=== PATIENT | female | born 1990 | race American Indian/Alaskan Native ===

== ENCOUNTER 2017-06-10 20:44 | Emergency (ER) | payer OTHER ==
[2017-06-10 20:44] VITALS: BMI 37.0
[2017-06-10 20:56] VITALS: RESP 20
--- NOTE | 2017-06-10 21:41 | C.PDOC ---
History Of Present Illness 26 y/o female presents to ED with complaints of abdominal pain with associated nausea, vomiting and diarrhea. Patient states she is not tolerating PO and reports having previous work up including a CT and an Endoscopy with diagnosis of Gastritis. Patient denies fever, chills or any other complaints at this time. Time Seen by Provider: 06/10/17 21:41 Chief Complaint (Nursing): Abdominal Pain History Per: Patient History/Exam Limitations: no limitations Onset/Duration Of Symptoms: Days Past Medical History Reviewed: Historical Data, Nursing Documentation, Vital Signs Vital Signs: Last Vital Signs Temp 97 F L 06/11/17 00:53 Pulse 68 06/11/17 00:53 Resp 20 06/11/17 00:53 BP 109/60 06/11/17 00:53 Pulse Ox 98 06/11/17 00:53 - Medical History PMH: Asthma, Gastritis - [facility] Procedures INJECT/INFUSE NEC (04/27/14) NEBULIZER THERAPY (05/07/15) Family History: States: No Known Family Hx - Social History Hx Tobacco Use: No Hx Alcohol Use: Yes (Occasionally) Hx Substance Use: No (denies today) - Immunization History Hx Tetanus Toxoid Vaccination: Yes Hx Influenza Vaccination: Yes Hx Pneumococcal Vaccination: Yes Review Of Systems Constitutional: Negative for: Fever, Chills Gastrointestinal: Positive for: Nausea, Vomiting, Abdominal Pain, Diarrhea Skin: Negative for: Rash Physical Exam - Physical Exam Appears: Non-toxic, No Acute Distress Skin: Warm Head: Normacephalic Oral Mucosa: Moist Chest: Symmetrical Cardiovascular: No Murmur Respiratory: No Rales, No Rhonchi, No Wheezing Gastrointestinal/Abdominal: Tenderness (Mild abdominal ), No Guarding, No Rebound Neurological/Psych: Oriented x3 ED Course And Treatment - Laboratory Results Result Diagrams: 06/10/17 22:06 06/10/17 22:06 O2 Sat by Pulse Oximetry: 100 (RA) Pulse Ox Interpretation: Normal Reevaluation Time: 01:38 Reassessment Condition: Improved Medical Decision Making Medical Decision Making: Upon provider reevaluation patient is feeling better, is medically stable, and requires no further treatment in the ED at this time. Patient will be discharged home with Rx for macrobid, ativan, kcl. Counseling was provided and all questions were answered regarding diagnosis and need for follow up with dr le. There is agreement to discharge plan. Return if symptoms persist or worsen. Disposition Counseled Patient/Family Regarding: Studies Performed, Diagnosis, Need For Followup, Rx Given - Disposition Referrals: Abhilash Le MD [Staff Provider] - Disposition Time: 21:41 Condition: FAIR Prescriptions: Lorazepam [Ativan] 0.5 mg PO BID PRN #10 tab PRN Reason: Nausea/Vomiting Nitrofurantoin Macrocrystals [Macrobid] 1 cap PO BID #14 cap Potassium Chloride 20 meq PO DAILY #4 tablet.er Instructions: Acute Nausea and Vomiting (ED), Hypokalemia (DC), Urinary Tract Infection in Women (DC) - Clinical Impression Clinical Impression: Abdominal pain, Nausea, Vomiting, Hypokalemia - Scribe Statement The provider has reviewed the documentation as recorded by the Jeffery Turner All medical record entries made by the Jeffery were at my direction and personally dictated by me. I have reviewed the chart and agree that the record accurately reflects my personal performance of the history, physical exam, medical decision making, and the department course for this patient. I have also personally directed, reviewed, and agree with the discharge instructions and disposition.
[2017-06-10] MEDS ORDERED: Sodium Chloride 0.9% 1,000 ML IV ONE ×2 (21:59→23:35)
[2017-06-10] MEDS ORDERED: Sodium Chloride 0.9% 1,000 ML ONE (22:06)
[2017-06-10 22:13] LABS: BASO % 0.4 % (0.0-2.0); EOS % 0.4 % (0.0-4.0); HEMATOCRIT 40.9 % (34.0-47.0); LYMPH # 2.6 K/uL (1.0-4.3); LYMPH % 36.8 % (20.0-40.0); MEAN CELL VOLUME 88.4 fL (81.0-99.0); MEAN CORPUSCULAR HEMOGLOBIN 29.1 pg (27.0-31.0); MEAN CORPUSCULAR HGB CONC 32.9 g/dL (33.0-37.0); MEAN PLATELET VOLUME 10.8 fL (7.2-11.7); MONO # 0.7 K/uL (0.0-0.8); MONO % 9.6 % (0.0-10.0); NRBC % 0.1 % (0.0-2.0); RED CELL DISTRIBUTION WIDTH 13.6 % (11.5-14.5); WHITE BLOOD COUNT 7.1 K/uL (4.8-10.8)
[2017-06-10 22:19] LABS: CHLORIDE 97 mmol/L (98-107); SODIUM 134 mmol/L (132-148)
[2017-06-10 22:21] LABS: ALB/GLOB RATIO 1.4 (1.0-2.1); ALKALINE PHOSPHATASE 46 U/L (38-126); AST/SGOT 14 U/L (14-36); BILIRUBIN,TOTAL 1.1 mg/dL (0.2-1.3); CARBON DIOXIDE 23 mmol/L (22-30); GFR AFRICAN-AMERICAN > 60; POTASSIUM 2.5 mmol/L (3.6-5.2); TOTAL PROTEIN 6.9 g/dL (6.3-8.3)
[2017-06-10 22:22] LABS: ALT/SGPT 27 U/L (9-52); BLOOD UREA NITROGEN 7 mg/dL (7-17); CALCIUM 7.8 mg/dl (8.6-10.4); GLUCOSE,RANDOM 81 mg/dL (65-105)
[2017-06-10] MEDS ORDERED: Potassium Chloride 10 mEq ER Tab PO STA (22:22)
[2017-06-10] MEDS ORDERED: Potassium Chloride 20 mEq ER Tab PO ONE (22:25)
[2017-06-11] MEDS ORDERED: Sodium Chloride 0.9% 1,000 ML ONE (00:33)
[2017-06-11 00:37] LABS: RBC URINE 16 /hpf (0-3); URINE BILIRUBIN NEGATIVE (NEGATIVE); URINE BLOOD NEGATIVE (NEGATIVE); URINE COLOR Amber (YELLOW); URINE GLUCOSE (UA) NORMAL (Normal); URINE KETONE 2+ mg/dL (NEGATIVE); URINE LEUKOCYTE ESTERASE NEG Leu/uL (Negative); URINE PROTEIN 2+ mg/dL (NEGATIVE); WBC CLUMPS MANY /hpf; WBC URINE 25 /hpf (0-5)
[2017-06-11] MEDS ORDERED: Piperacillin/Tazobact 3.375 gm 100 ML IVPB STA (00:45)
[2017-06-11] MEDS ORDERED: Piperacillin/Tazobact 3.375 gm 100 ML IVPB ONE (00:49)
[2017-06-11 02:05] VITALS: BP 120/70; PULSE 83; TEMP 98.8; O2SAT 98
== END 2017-06-11 02:05 | disposition home or self-care (01) ==
LOC: C.ER 20:44
DX: R10.9 Unspecified abdominal pain (principal); R11.2 Nausea with vomiting, unspecified; E87.6 Hypokalemia
CPT/HCPCS: 80053; 81001; 83690; 84703; 85025; 96361; 96365; 96366; 96367; 96375; 99285; J2060; J2405; J2543; J2765; J3480; J7040

== ENCOUNTER 2017-06-14 18:39 | Inpatient (IN) | payer OTHER ==
[2017-06-14 18:39] VITALS: BMI 31.2
[2017-06-14] MEDS ORDERED: Sodium Chloride 0.9% 1,000 ML IV ONE ×3 (20:13→23:11)
[2017-06-14] MEDS ORDERED: Alum-Mag Hydrox-Simethicone Susp (30 mL) PO STA (20:14)
[2017-06-14] MEDS ORDERED: Sodium Chloride 0.9% 1,000 ML ONE (20:25)
[2017-06-14 20:30] LABS: BASO % 0.8 % (0.0-2.0); EOS % 0.3 % (0.0-4.0); HEMOGLOBIN 13.2 g/dL (11.0-16.0); LYMPH # 1.7 K/uL (1.0-4.3); LYMPH % 30.1 % (20.0-40.0); MEAN CELL VOLUME 89.1 fL (81.0-99.0); MEAN CORPUSCULAR HEMOGLOBIN 29.6 pg (27.0-31.0); MEAN CORPUSCULAR HGB CONC 33.2 g/dL (33.0-37.0); MONO # 0.6 K/uL (0.0-0.8); MONO % 11.6 % (0.0-10.0); NEUT # 3.1 K/uL (1.8-7.0); NEUT % 57.2 % (50.0-75.0); RBC 4.47 Mil/uL (3.80-5.20); RED CELL DISTRIBUTION WIDTH 13.3 % (11.5-14.5); WHITE BLOOD COUNT 5.5 K/uL (4.8-10.8)
[2017-06-14] MEDS ORDERED: Alum-Mag Hydrox-Simethicone Susp (30 mL) ONE (20:35)
[2017-06-14 20:39] LABS: HCG,QUALITATIVE URINE NEGATIVE (NEGATIVE)
[2017-06-14 20:41] LABS: SQUAMOUS EPITHIAL 59 /hpf (0-5); URINE BACTERIA FEW (<OCC); URINE BILIRUBIN NEGATIVE (NEGATIVE); URINE BLOOD NEGATIVE (NEGATIVE); URINE CLARITY Hazy (Clear); URINE COLOR Yellow (YELLOW); URINE GLUCOSE (UA) NORMAL (Normal); URINE LEUKOCYTE ESTERASE 1+ Leu/uL (Negative); URINE NITRATE NEGATIVE (NEGATIVE); URINE PROTEIN NEGATIVE (NEGATIVE)
[2017-06-14 20:42] LABS: GFR AFRICAN-AMERICAN > 60; GFR NON-AFRICAN AMERICAN > 60
[2017-06-14 20:43] LABS: ALB/GLOB RATIO 1.3 (1.0-2.1); ALT/SGPT 21 U/L (9-52); AST/SGOT 22 U/L (14-36); BLOOD UREA NITROGEN 4 mg/dL (7-17); CALCIUM 8.8 mg/dl (8.6-10.4); LIPASE 63 U/L (23-300)
[2017-06-14 20:47] LABS: BARBITURATES, UR NEGATIVE (NEGATIVE); BENZODIAZEPINES, UR NEGATIVE (NEGATIVE)
[2017-06-14 20:49] LABS: PHENCYCLIDINE, UR NEGATIVE (NEGATIVE)
[2017-06-14 20:52] LABS: OPIATES, UR NEGATIVE (NEGATIVE)
--- NOTE | 2017-06-14 20:59 | C.PDOC ---
History Of Present Illness 26 year old female who presents to the ER with a complaint of uncontrollable vomiting for the past 2 weeks. Patient describes the emesis to be a yellow like fluids, she notes she has not been able to tolerate any kind of PO and chest pain due to vomiting. Patient was first seen on March 31 for abdominal pain and vomiting; she had an x-ray done that was negative; she was then seen in April for the same complaint and had a CT abd/pel and abdominal US which were negative. Patient was admitted 04/30-05/03 at [facility] for gastroenteritis; however, she left AMA. Patient was seen in May at [facility] for the same complaints, treated with ativan, macrobid, potassium, and discharged home; most recently patient was seen yesterday in [place] for the same complaints, treated with potassium, zofran, and discharged home. Patient had a recent endoscopy and US that were negative for abnormalities. Patient reports she has had no real bowel movement in the last 2 weeks, but states the when she does it is small amounts of diarrhea. Patient is on PO potassium and zofran at home that gives minimal relief; Denies recent travel or sick contact. Time Seen by Provider: 06/14/17 19:46 Chief Complaint (Nursing): GI Problem History Per: Patient History/Exam Limitations: no limitations Onset/Duration Of Symptoms: Days Current Symptoms Are (Timing): Still Present Quality Of Discomfort: Unable To Describe Associated Symptoms: Vomiting, Diarrhea, Chest Pain Exacerbating Factors: None Alleviating Factors: None Recent travel outside of the [place]: No Abnormal Vaginal Bleeding: No Past Medical History Reviewed: Historical Data, Nursing Documentation, Vital Signs Vital Signs: Last Vital Signs Temp 98.6 F 06/15/17 00:01 Pulse 70 06/15/17 00:01 Resp 22 06/15/17 00:01 BP 103/63 06/15/17 00:01 Pulse Ox 99 06/15/17 00:01 - Medical History PMH: Asthma, Gastritis Surgical History: No Surg Hx - [facility] Procedures INJECT/INFUSE NEC (04/27/14) NEBULIZER THERAPY (05/07/15) Family History: States: Unknown Family Hx - Social History Hx Tobacco Use: No Hx Alcohol Use: No (Occasionally) Hx Substance Use: No (denies today) - Immunization History Hx Tetanus Toxoid Vaccination: No Hx Influenza Vaccination: No Hx Pneumococcal Vaccination: No Review Of Systems ENT: Negative for: Throat Pain Cardiovascular: Positive for: Chest Pain Respiratory: Negative for: Shortness of Breath Gastrointestinal: Positive for: Vomiting, Diarrhea Physical Exam - Physical Exam Appears: Non-toxic Skin: Normal Color, Warm, Dry Head: Atraumatic, Normacephalic Oral Mucosa: Moist Chest: Symmetrical, No Deformity Cardiovascular: Rhythm Regular, No Murmur Respiratory: Normal Breath Sounds, No Rales, No Rhonchi, No Wheezing Gastrointestinal/Abdominal: Soft, Tenderness (LLQ LUQ) Neurological/Psych: Oriented x3, Normal Speech, Normal Cognition ED Course And Treatment - Laboratory Results Result Diagrams: 06/14/17 20:25 06/14/17 20:25 Lab Interpretation: Abnormal (mild hypokalemia. +THC) O2 Sat by Pulse Oximetry: 100 (Room air) Pulse Ox Interpretation: Normal - Radiology CXR: Interpreted by Me CXR Interpretation: Yes: No Acute Disease - Other Rad abd x 2 X-Ray: Interpreted by Me (PO contrast (prior study yesterday) and scant stool noted ) Progress Note: Abdominal x-ray ordered. Maalox, toradol, ativan, zofran, protonix, and IV fluids administered. Reevaluation Time: 23:00 Reassessment Condition: Improved - Physician Consult Information Outcome Of Conversation: 2300: d/w Dr. Blanco- Medicine Dealership Manager- ok to med/surg Obs Medical Decision Making Medical Decision Making: intractable vomiting for about 1 month [facility] evaluations [facility], [facility] in [place] and our hospital Gastritis noted on upper endoscopy but no gastric ulcers. Consider Central etilogy of pt's persistent n/v. Disposition Doctor Will See Patient In The: Hospital Counseled Patient/Family Regarding: Studies Performed, Diagnosis - Disposition Disposition: HOSPITALIZED Disposition Time: 00:00 Condition: GOOD - Clinical Impression Clinical Impression: Intractable vomiting - Scribe Statement The provider has reviewed the documentation as recorded by the Benedictibdorene Kay All medical record entries made by the Scribe were at my direction and personally dictated by me. I have reviewed the chart and agree that the record accurately reflects my personal performance of the history, physical exam, medical decision making, and the department course for this patient. I have also personally directed, reviewed, and agree with the discharge instructions and disposition.
[2017-06-14] MEDS ORDERED: Aluminum Hydroxide/Magnesium Hydroxide Susp (30 mL) PO ONE (22:01)
[2017-06-14] MEDS ORDERED: Aluminum Hydroxide/Magnesium Hydroxide Susp (30 mL) ONE (22:06)
[2017-06-15] MEDS ORDERED: Sodium Chloride 0.9% 1,000 ML IV SCH (08:15)
--- NOTE | 2017-06-15 09:32 | CT ---
PROCEDURE: CT HEAD WITHOUT CONTRAST. HISTORY: Intractable vomiting COMPARISON: None available. TECHNIQUE: Axial computed tomography images were obtained through the head/brain without intravenous contrast. Radiation dose: Total exam DLP = 937 mGy-cm. This CT exam was performed using one or more of the following dose reduction techniques: Automated exposure control, adjustment of the mA and/or kV according to patient size, and/or use of iterative reconstruction technique. FINDINGS: HEMORRHAGE: No intracranial hemorrhage. BRAIN: No mass effect or edema. No atrophy or chronic microvascular ischemic changes. Punctate left basal ganglia calcification. VENTRICLES: Unremarkable. No hydrocephalus. CALVARIUM: Unremarkable. PARANASAL SINUSES: Unremarkable as visualized. No significant inflammatory changes. MASTOID AIR CELLS: Unremarkable as visualized. No inflammatory changes. OTHER FINDINGS: None. IMPRESSION: No acute intracranial abnormality. If focal neurologic deficit persists, consider MRI.
--- NOTE | 2017-06-15 09:55 | RAD ---
Abdomen four views History: Abdominal pain. Comparison: None available. Findings: Mild venous congestion. Contrast within the colon likely from recent administration. Clinical correlation. No evidence of gross bowel obstruction. Relative paucity of bowel gas. Left-sided nipple right noted. Impression: Nonspecific bowel gas pattern with relative paucity of bowel gas.
[2017-06-15 11:43] LABS: BASO # 0.1 K/uL (0.0-0.2); HEMOGLOBIN 11.8 g/dL (11.0-16.0); LYMPH # 1.7 K/uL (1.0-4.3); LYMPH % 33.6 % (20.0-40.0); MEAN CELL VOLUME 89.7 fL (81.0-99.0); MEAN CORPUSCULAR HEMOGLOBIN 29.4 pg (27.0-31.0); MEAN CORPUSCULAR HGB CONC 32.8 g/dL (33.0-37.0); MEAN PLATELET VOLUME 11.1 fL (7.2-11.7); MONO # 0.6 K/uL (0.0-0.8); MONO % 12.5 % (0.0-10.0); NEUT # 2.5 K/uL (1.8-7.0); NEUT % 51.9 % (50.0-75.0); NRBC % 0.1 % (0.0-2.0); RBC 4.01 Mil/uL (3.80-5.20); RED CELL DISTRIBUTION WIDTH 13.7 % (11.5-14.5); WHITE BLOOD COUNT 4.9 K/uL (4.8-10.8)
[2017-06-15] MEDS ORDERED: Pantoprazole 40 mg EC Tab PO STA (11:58)
[2017-06-15 12:01] LABS: ALBUMIN 3.1 g/dL (3.5-5.0)
[2017-06-15 12:04] LABS: AST/SGOT 16 U/L (14-36); GFR AFRICAN-AMERICAN > 60; GFR NON-AFRICAN AMERICAN > 60
[2017-06-15 12:05] LABS: ALB/GLOB RATIO 1.2 (1.0-2.1); ALT/SGPT 24 U/L (9-52); BLOOD UREA NITROGEN 3 mg/dL (7-17)
--- NOTE | 2017-06-15 14:00 | CP.PCM.HP ---
History of Present Illness - History of Present Illness History of Present Illness: COMPREHENSIVE HISTORY & PHYSICAL EXAM HPI ADMITTED FOR CONTINOUS VOMITING FOR 1 DAY PT HAS MULTIPLE ER VISITS FOR SAME PROBLEM . CLAIMS SHE HAD GI W/U WITH DX. GASTRITIS . I DO NOT SEE ANY ENDOSCOPY REPORT PAST HIST. NONE PERSONAL HIST: Smoking. N Alcohol. N Allergy N Travel_- . FAMILY HIST : ROS : Constitutional: Negative for weight change, chills, night sweats, fatigue and usage of assist device. Eyes: Negative for redness, swelling, itching, discharge, vision changes, blurry vision, double vision, glaucoma, cataracts, Ears: Negative for hearing loss, ringing, , tinnitus, vertigo Nose: Negative for rhinorrhea, stuffiness, sniffing, itching, postnasal drip, discoloration, nasal congestion and epistaxis. Throat: Negative for throat clearing, sore throat, hoarseness, difficulty swallowing and difficulty speaking. Respiratory: Negative for cough, , sputum production, chest tightness, wheezing, pleuritic chest pain ,daytime somnolence, chronic cough, hemoptysis, snoring at night, Cardiovascular: Negative for chest pain, palpitations, orthopnea, PND, Edema of legs, leg cramps, angina, claudication, , irregular heartbeat, Neurology: Negative for irritability, muscle weakness, numbness and tingling, seizures, tremors, migraines, slurred speech, syncope, memory loss, mood changes , recurrent headaches Gastrointestinal: Negative for difficulty swallowing, diarrhea, constipation, black stools, rectal bleeding, Genitourinary: Negative for frequent urination, hematuria, discharge, incontinence, urinary retention, frequent UTI, Psychiatric : Negative for depression, anxiety/panic, suicidal tendencies, Musculoskeletal: Negative for swollen joints, back pain, , neck pain, morning stiffness of joints, . Skin: Negative for rash, ulcers, itching, dry skin and pigmented lesions. P/E: Constitutional: Appears stated age and in no apparent distress. Head: Normocephalic. Ears: External ear canals patent without inflammation. Tympanic membranes intact with normal light reflex and landmark. Eyes: Pupils are central, bilaterally equal, symmetrical and reacts to light with normal movements and no icterus or pallor. Nose: External nares are patent. Mucosa is pink Mouth-Throat: Good general appearance and condition. No post-pharyngeal/oropharyngeal erythema and tonsillar hypertrophy. Good dental hygiene. Neck-Lymphatic: Neck is supple with normal ROM, no thyromegaly, lymph nodes or masses. JVD is normal with no carotid bruit. Lungs: Clear to percussion and auscultation with bilateral normal air entry. Cardiovascular: S1 and S2 are normal with no murmurs, gallops and rub. GI Exam: No hepatomegaly. Abdomen is soft and -tender. No Organomegaly , masses or hernias are evident and bowel sounds are normal and active. Neurology: Higher function and all cranial nerves intact, with no gross motor or sensory deficit. Superficial and deep reflexes are normal with downwards planters. No cerebellar deficit with normal gait. Musculoskeletal: No tender spots with normal curvature of the spine with no swelling or restricted ROM of the small and large joints. Extremities: Homans sign absent. Intact pulses with no pitting edema, calf tenderness or skin color changes. Skin: No rash, eruptions or abnormal skin pigmentation LAB/RADIOLOGY: ASSESMENT : VOMITING , ETIOLOGY TO BE DETERMINED R/O LOCAL AND ANALYSIS OR RESEARCH SAFETY INSPECTOR CAUSES PLAN: CT HEAD TO R/O CENTRAL CAUSES OF VOMITING Present on Admission - Present on Admission Any Indicators Present on Admission: No Past Patient History - Infectious Disease Hx of Infectious Diseases: None - Past Social History Smoking Status: Never Smoked - CARDIAC Hx Cardiac Disorders: No - PULMONARY Hx Respiratory Disorders: Yes Hx Asthma: Yes - NEUROLOGICAL Hx Neurological Disorder: No - HEENT Hx HEENT Problems: No - RENAL Hx Chronic Kidney Disease: No Hx Kidney Stones: No - ENDOCRINE/METABOLIC Hx Endocrine Disorders: No - HEMATOLOGICAL/ONCOLOGICAL Hx Blood Disorders: No - INTEGUMENTARY Hx Dermatological Problems: No - MUSCULOSKELETAL/RHEUMATOLOGICAL Hx Musculoskeletal Disorders: No Hx Falls: No - GASTROINTESTINAL Hx Gastrointestinal Disorders: Yes Hx Gastritis: Yes - GENITOURINARY/GYNECOLOGICAL Hx Genitourinary Disorders: No - PSYCHIATRIC Hx Psychophysiologic Disorder: No Hx Substance Use: No (pt denies any use of substance) - SURGICAL HISTORY Hx Surgeries: No - ANESTHESIA Hx Anesthesia: No Meds Allergies/Adverse Reactions: Allergies Allergy/AdvReac Type Severity Reaction Status Date / Time No Known Allergies Allergy Verified 06/14/17 18:45 Results - Vital Signs Recent Vital Signs: Last Vital Signs Temp 98.2 F 06/15/17 08:14 Pulse 73 06/15/17 08:14 Resp 20 06/15/17 08:14 BP 102/61 06/15/17 08:14 Pulse Ox 99 06/15/17 08:14 - Labs Result Diagrams: 06/15/17 11:28 06/15/17 11:28 Labs: Laboratory Results - last 24 hr 06/15/17 06/15/17 11:28 11:28 WBC 4.9 RBC 4.01 Hgb 11.8 Hct 36.0 MCV 89.7 MCH 29.4 MCHC 32.8 L RDW 13.7 Plt Count 183 MPV 11.1 Neut % (Auto) 51.9 Lymph % (Auto) 33.6 [place] % (Auto) 12.5 H Eos % (Auto) 1.0 Baso % (Auto) 1.0 Neut # 2.5 Lymph # 1.7 [place] # 0.6 Eos # 0.0 Baso # 0.1 Sodium 135 Potassium 3.1 L Chloride 99 Carbon Dioxide 24 Anion Gap 15 BUN 3 L Creatinine 0.7 Est GFR ( Amer) > 60 Est GFR (Non-Af Amer) > 60 Random Glucose 111 H Calcium 8.0 L Total Bilirubin 0.7 AST 16 ALT 24 Alkaline Phosphatase 34 L Total Protein 5.7 L Albumin 3.1 L D Globulin 2.6 Albumin/Globulin Ratio 1.2
--- NOTE | 2017-06-15 14:40 | CP.PCM.CON ---
<Melina Hernandez - Last Filed: 06/15/17 15:30> History of Present Illness - History of Present Illness History of Present Illness: Gastroenterology Fellow/PGY5 Consult Note 26 year old female with history of asthma and recurrent nausea/vomiting presenting with nausea, vomiting, and diarrhea. Patient describes persistent vomiting of all oral intake for the last two weeks leading to a fifteen pound weight loss. She denies inciting events with no known sick contacts, recent antibiotics, or recent travel. Associated diarrhea, chills, and loss of appetite. Symptoms are mildly improved with a hot shower. She notes similar symptoms lasting only few days of recurrent vomiting with over ten ER visits and endorsed diagnosis of gastritis. Admits to marijuana use during the " summer months" that she feels sometimes improves her nausea. Admit sto stopping marijuanu use for the last week. Since admission, one witnessed clear vomitus with attempted clear liquid diet. Admits to resolved nausea with zofran administration. Continues to have voluntary phlegm production with over ten spitiing episodes during history taking. She describes the vomiting episodes as same consistency of any solid or liquid intake within 1-3 minutes. Admits to upper abdominal pain due to recurrent contractions with vomiting. Denies hematemesis, constipation, melena, hematochezia, dysphagia, odynophagia, globus sensation, indigestion, acid reflux, heartburn, or bloating. Notes daily bowel movement outside of the last two weeks with acute intermittent diarrhea. Prior CT A/P IV contrast (04/30/17) showed no acute pathology and Ultrasound (05/12/17) showed no gallstones. Prior ER visits 06/10/17 and 06/13/17 with macrobid prescribed for UTI. Prior EGD with Dr. Ahmet Langley one week ago endorsed to show Gastritis. No prior colonoscopy. Family- Mother-cholecystectomy; sister-appendectomy Social- denies tobacco or alcohol use; admits to daily marijuana use " only during summer months and this is my first year using", no marijuana use for one week prior to admission Surgery-none Review of Systems - Review of Systems Review of Systems: 12-point review of systems negative except for as above Past Patient History - Infectious Disease Hx of Infectious Diseases: None - Past Social History Smoking Status: Never Smoked - CARDIAC Hx Cardiac Disorders: No - PULMONARY Hx Respiratory Disorders: Yes Hx Asthma: Yes - NEUROLOGICAL Hx Neurological Disorder: No - HEENT Hx HEENT Problems: No - RENAL Hx Chronic Kidney Disease: No Hx Kidney Stones: No - ENDOCRINE/METABOLIC Hx Endocrine Disorders: No - HEMATOLOGICAL/ONCOLOGICAL Hx Blood Disorders: No - INTEGUMENTARY Hx Dermatological Problems: No - MUSCULOSKELETAL/RHEUMATOLOGICAL Hx Musculoskeletal Disorders: No Hx Falls: No - GASTROINTESTINAL Hx Gastrointestinal Disorders: Yes Hx Gastritis: Yes - GENITOURINARY/GYNECOLOGICAL Hx Genitourinary Disorders: No - PSYCHIATRIC Hx Psychophysiologic Disorder: No Hx Substance Use: No (pt denies any use of substance) - SURGICAL HISTORY Hx Surgeries: No - ANESTHESIA Hx Anesthesia: No Meds Allergies/Adverse Reactions: Allergies Allergy/AdvReac Type Severity Reaction Status Date / Time No Known Allergies Allergy Verified 06/14/17 18:45 - Medications Medications: Current Medications Sodium Chloride (Sodium Chloride 0.9%) 1,000 mls @ 100 mls/hr IV .Q10H [facility]I Last Admin: 06/15/17 13:10 Dose: 100 mls/hr Ondansetron HCl (Zofran Inj) 4 mg IVP Q4 PRN PRN Reason: Nausea/Vomiting Last Admin: 06/15/17 09:45 Dose: 4 mg Ondansetron HCl (Zofran Odt) 4 mg PO Q8H PRN PRN Reason: Nausea/Vomiting see dose instr Last Admin: 06/15/17 12:46 Dose: 4 mg Pantoprazole Sodium (Protonix Inj) 40 mg IVP DAILY [facility] Pneumococcal Polyvalent Vaccine (Pneumovax 23 Vaccine) 0.5 ml IM .ONCE ONE Stop: 06/17/17 10:01 Physical Exam - Constitutional Appears: Non-toxic, No Acute Distress - Head Exam Head Exam: ATRAUMATIC, NORMOCEPHALIC - Eye Exam Eye Exam: EOMI, PERRL Pupil Exam: PERRL. absent: Miosis, Mydriatic - ENT Exam ENT Exam: Mucous Membranes Moist, Normal Oropharynx - Neck Exam Neck exam: Positive for: Full Rom, Normal Inspection - Respiratory Exam Respiratory Exam: Clear to Auscultation Bilateral. absent: Rales, Rhonchi, Wheezes - Cardiovascular Exam Cardiovascular Exam: RRR, +S1, +S2. absent: Gallop, Rubs - GI/Abdominal Exam GI & Abdominal Exam: Normal Bowel Sounds, Soft, Tenderness. absent: Distended, Firm, Guarding, Organomegaly, Rebound, Rigid Additional comments: B/L UQ mild discomfort to palpation - Extremities Exam Extremities exam: Positive for: full ROM. Negative for: pedal edema - Neurological Exam Neurological exam: Alert - Psychiatric Exam Psychiatric exam: Normal Affect, Normal Mood - Skin Skin Exam: Dry, Intact, Normal Color, Warm Results - Vital Signs Recent Vital Signs: Last Vital Signs Temp 98.2 F 06/15/17 08:14 Pulse 73 06/15/17 08:14 Resp 20 06/15/17 08:14 BP 102/61 06/15/17 08:14 Pulse Ox 99 06/15/17 08:14 - Labs Result Diagrams: 06/15/17 11:28 06/15/17 11:28 Labs: Laboratory Results - last 24 hr 06/15/17 06/15/17 11:28 11:28 WBC 4.9 RBC 4.01 Hgb 11.8 Hct 36.0 MCV 89.7 MCH 29.4 MCHC 32.8 L RDW 13.7 Plt Count 183 MPV 11.1 Neut % (Auto) 51.9 Lymph % (Auto) 33.6 Tompkins % (Auto) 12.5 H Eos % (Auto) 1.0 Baso % (Auto) 1.0 Neut # 2.5 Lymph # 1.7 Tompkins # 0.6 Eos # 0.0 Baso # 0.1 Sodium 135 Potassium 3.1 L Chloride 99 Carbon Dioxide 24 Anion Gap 15 BUN 3 L Creatinine 0.7 Est GFR ( Amer) > 60 Est GFR (Non-Af Amer) > 60 Random Glucose 111 H Calcium 8.0 L Total Bilirubin 0.7 AST 16 ALT 24 Alkaline Phosphatase 34 L Total Protein 5.7 L Albumin 3.1 L D Globulin 2.6 Albumin/Globulin Ratio 1.2 Assessment & Plan - Assessment and Plan (Free Text) Assessment: 26 year old female with history of asthma and recurrent nausea/vomiting presenting with nausea, vomiting, and diarrhea. Prior CT A/P IV contrast 04/30/17 no acute pathology and Ultrasound 05/12/17 showed no gallstones. Active treatment of intractable nausea and vomiting. Obstructive series with no acute findings. Prior EGD with Dr. Ahmet Langley one week ago endorsed to show Gastritis. No prior colonoscopy. Plan: >DDx: cannabis withdrawal syndrome, cyclic vomiting syndrome, rumination syndrome >supportive care: anti-emetics, PPI, IVFs >electrolyte replacement >counselled on marijuana cessation >consider antibiotics for bacteriuria and repeat urine culture >clear liquid diet, advance as tolerated >awaiting records from outpatient EGD with Dr. Langley one week ago >will follow clinical course <Sal Gamez - Last Filed: 06/15/17 16:08> Meds - Medications Medications: Current Medications Famotidine (Pepcid) 20 mg IVP BID [facility]I Sodium Chloride (Sodium Chloride 0.9%) 1,000 mls @ 100 mls/hr IV .Q10H [facility]I Last Admin: 06/15/17 13:10 Dose: 100 mls/hr Ondansetron HCl (Zofran Inj) 4 mg IVP Q4 PRN PRN Reason: Nausea/Vomiting Last Admin: 06/15/17 09:45 Dose: 4 mg Ondansetron HCl (Zofran Odt) 4 mg PO Q8H PRN PRN Reason: Nausea/Vomiting see dose instr Last Admin: 06/15/17 12:46 Dose: 4 mg Pneumococcal Polyvalent Vaccine (Pneumovax 23 Vaccine) 0.5 ml IM .ONCE ONE Stop: 06/17/17 10:01 Results - Vital Signs Recent Vital Signs: Last Vital Signs Temp 98.2 F 06/15/17 08:14 Pulse 73 06/15/17 08:14 Resp 20 06/15/17 08:14 BP 102/61 06/15/17 08:14 Pulse Ox 99 06/15/17 08:14 - Labs Result Diagrams: 06/15/17 11:28 06/15/17 11:28 Labs: Laboratory Results - last 24 hr 06/15/17 06/15/17 11:28 11:28 WBC 4.9 RBC 4.01 Hgb 11.8 Hct 36.0 MCV 89.7 MCH 29.4 MCHC 32.8 L RDW 13.7 Plt Count 183 MPV 11.1 Neut % (Auto) 51.9 Lymph % (Auto) 33.6 Tompkins % (Auto) 12.5 H Eos % (Auto) 1.0 Baso % (Auto) 1.0 Neut # 2.5 Lymph # 1.7 Tompkins # 0.6 Eos # 0.0 Baso # 0.1 Sodium 135 Potassium 3.1 L Chloride 99 Carbon Dioxide 24 Anion Gap 15 BUN 3 L Creatinine 0.7 Est GFR ( Amer) > 60 Est GFR (Non-Af Amer) > 60 Random Glucose 111 H Calcium 8.0 L Total Bilirubin 0.7 AST 16 ALT 24 Alkaline Phosphatase 34 L Total Protein 5.7 L Albumin 3.1 L D Globulin 2.6 Albumin/Globulin Ratio 1.2 Attending/Attestation - Attestation I have personally seen and examined this patient.: Yes I have fully participated in the care of the patient.: Yes I have reviewed all pertinent clinical information: Yes Notes (Text): 06/15/17 15:58 I have seen and examined patient with GI fellow. Agree with above documentation with the following additions. In brief, this is a 26 year old female with history of asthma, migraine headaches who presents to hospital with complaint of worsening nausea and vomiting which started 2 weeks ago. She has had recurrent similar episodes over the past several months leading to multiple hospitalizations for similar complaints. She claims for the past two weeks she has been unable to tolerate PO liquids or solids and has had multiple episodes of non-bloody emesis. She also notes excessive phlegm and oral secretions. She reports LUQ abdominal pain which is worsened by episodes of vomiting. She denies dysphagia, odynophagia, regurgitation of food product, fever/chills, or change in bowel habits. She does report weight loss of nearly 15 pounds since symptoms began. She also admits to ongoing marijuana use which she stopped one week ago. She had an EGD with Dr. Langley 1 week ago which was normal as per patient, biopsy results unknown. Asthma Migraine headaches Recurrent nausea, vomiting - symptoms secondary to cyclic vomiting syndrome ( commonly associated with migraine headaches) vs marijuana side effect vs WARDROBE COORDINATOR pathology Prior CT/US imaging reviewed by me showing no gross GI pathology UTI - Continue with IVF hydration and supportive therapy - Anti-emetic therapy PRN - Liquid diet, advance slowly as tolerated - Repeat urine culture, consider antibiotic therapy for UTI (patient previously only partially treated) - Obtain recent EGD biopsy results - Consider CT head imaging to rule out WARDROBE COORDINATOR cause - Will continue to monitor patient clinical course
--- NOTE | 2017-06-16 09:33 | CP.PCM.PN ---
Addendum entered and electronically signed by Melina Hernandez DO 06/16/17 12:34 : Outpatient EGD 06/10/17 showed medium hiatal hernia, distal esophagus erythema Gastritis, doudenal bulb sub-cm clean-based ulcers -pathology: normal esophageal mucosa, mild chronic Gastritis, negative H. pylori Original Note: <Melina Hernandez - Last Filed: 06/16/17 09:59> Subjective - Date & Time of Evaluation Date of Evaluation: 06/16/17 Time of Evaluation: 09:27 - Subjective Subjective: Gastroenterology Fellow/PGY5 Progress Note Patient notes improved abdominal pain. States vomited after clear liquid intake overnight and this morning. One episode of diarrhea this morning after clear liquid intake. A 12-point review of systems negative except for as above. Objective - Vital Signs/Intake and Output Vital Signs (last 24 hours): Temp Pulse Resp BP Pulse Ox 98.2 F 75 20 100/61 98 06/16/17 07:21 06/16/17 07:21 06/16/17 07:21 06/16/17 07:21 06/16/17 07:21 Intake and Output: 06/16/17 06/16/17 06:59 18:59 Intake Total 800 Balance 800 - Medications Medications: Current Medications Famotidine (Pepcid) 20 mg IVP BID [facility] Potassium Chloride 40 meq/ (Sodium Chloride) 1,020 mls @ 100 mls/hr IV .[id number] DAVI Last Admin: 06/16/17 05:00 Dose: 100 mls/hr Ondansetron HCl (Zofran Inj) 4 mg IVP Q4 PRN PRN Reason: Nausea/Vomiting Last Admin: 06/16/17 08:57 Dose: 4 mg Ondansetron HCl (Zofran Odt) 4 mg PO Q8H PRN PRN Reason: Nausea/Vomiting see dose instr Last Admin: 06/15/17 12:46 Dose: 4 mg Pneumococcal Polyvalent Vaccine (Pneumovax 23 Vaccine) 0.5 ml IM .ONCE ONE Stop: 06/17/17 10:01 - Labs Labs: 06/15/17 11:28 06/15/17 11:28 - Constitutional Appears: Non-toxic, No Acute Distress - Head Exam Head Exam: ATRAUMATIC, NORMOCEPHALIC - Eye Exam Eye Exam: EOMI, PERRL Pupil Exam: PERRL. absent: Miosis, Mydriatic - ENT Exam ENT Exam: Mucous Membranes Moist, Normal Oropharynx - Neck Exam Neck Exam: Full ROM, Normal Inspection - Respiratory Exam Respiratory Exam: Clear to Ausculation Bilateral. absent: Rales, Rhonchi, Wheezes - Cardiovascular Exam Cardiovascular Exam: RRR, +S1, +S2. absent: Gallop, Rubs - GI/Abdominal Exam GI & Abdominal Exam: Soft, Normal Bowel Sounds. absent: Distended, Firm, Guarding, Rigid, Tenderness, Organomegaly, Rebound - Extremities Exam Extremities Exam: Full ROM. absent: Pedal Edema - Neurological Exam Neurological Exam: Alert, Awake - Psychiatric Exam Psychiatric exam: Normal Affect, Normal Mood - Skin Skin Exam: Dry, Intact, Normal Color, Warm Assessment and Plan - Assessment and Plan (Free Text) Assessment: 26 year old female with history of asthma and recurrent nausea/vomiting presenting with nausea, vomiting, and diarrhea. Prior CT A/P IV contrast 04/30/17 no acute pathology and Ultrasound 05/12/17 showed no gallstones. Active treatment of intractable nausea and vomiting likely secondary to cannabis use. Obstructive series with no acute findings. Prior EGD with Dr. Ahmet Langley one week ago endorsed to show Gastritis. No prior colonoscopy. Plan: >supportive care: anti-emetics, PPI, IVFs >counselled on marijuana cessation >clear liquid diet, advance as tolerated to low fat, small frequent meals >awaiting records from outpatient EGD with Dr. Langley one week ago >recommend outpatient follow up with established Ore Grader on discharge >will follow clinical course <Dominguez Arriaga - Last Filed: 06/16/17 15:34> Objective - Vital Signs/Intake and Output Vital Signs (last 24 hours): Temp Pulse Resp BP Pulse Ox 98.2 F 75 20 100/61 98 06/16/17 07:21 06/16/17 07:21 06/16/17 07:21 06/16/17 07:21 06/16/17 07:21 - Medications Medications: Current Medications Famotidine (Pepcid) 20 mg IVP BID [facility] Last Admin: 06/16/17 10:37 Dose: 20 mg Dextrose/Sodium Chloride (Dextrose 5%/0.45% Ns 1000 Ml) 1,000 mls @ 100 mls/hr IV .Q10H [facility]I Metoclopramide HCl (Reglan) 5 mg IVP ACTID [facility] Last Admin: 06/16/17 12:36 Dose: 5 mg Ondansetron HCl (Zofran Inj) 4 mg IVP Q4 PRN PRN Reason: Nausea/Vomiting Last Admin: 06/16/17 14:33 Dose: 4 mg Pneumococcal Polyvalent Vaccine (Pneumovax 23 Vaccine) 0.5 ml IM .ONCE ONE Stop: 06/17/17 10:01 Attending/Attestation - Attestation I have personally seen and examined this patient.: Yes I have fully participated in the care of the patient.: Yes I have reviewed all pertinent clinical information, including history, physical exam and plan: Yes Notes (Text): 06/16/17 15:33 26 year old female with h/o asthma, episodic nausea and vomiting in the setting of unremarkable imaging (CT/EGD) and chronic marijuana use. 1. Cyclic vomiting syndrome Plan: -advised marijuana abstinence -supportive care with IV fluids / zofran -acid suppressive therapy with PPI -low fat / small freq meals, advance as tolerated
--- NOTE | 2017-06-16 13:49 | CP.PCM.PN ---
Subjective - Date & Time of Evaluation Date of Evaluation: 06/16/17 Time of Evaluation: 13:47 - Subjective Subjective: CHIEF COMPLAINTS TODAY : LESS VOMITING CT HEAD NON CONTRAST NEG ROS. HEENT : N. Resp : No cough, wheezing ,pleuritic CP ,or hemoptysis Cardio : No anginal CP, PND, orthopnea, palpitation GI : No abd.pain, or GI bleeding . H[employer] : No headache, vertigo, focal deficit. Musculoskel : No joint swelling , Derm : No rash Psych : Normal affect. Ext : No swelling ,calf pain PE. Pt. is alert awake in no distress. V.S As noted in the chart Head ,ear nose,throat and eyes : Normal. Neck : Supple with normal carotids. Lungs: Clear air entry. Heart : S1 & S2 normal with S4. No murmur. Abd : Soft non tender with normal bowel sounds. Neuro : Moves all ext. with no localized deficit. Ext : No edema with intact pulses.Non tender calves Derm : No rashes or decubitus ulcer. LABS/RADIOLOGY: ASSESSMENT/PLAN : GI EVAL NOTED CORRECT K Objective - Vital Signs/Intake and Output Vital Signs (last 24 hours): Temp Pulse Resp BP Pulse Ox 98.2 F 75 20 100/61 98 06/16/17 07:21 06/16/17 07:21 06/16/17 07:21 06/16/17 07:21 06/16/17 07:21 Intake and Output: 06/16/17 06/16/17 11:59 23:59 Intake Total 800 Balance 800 - Medications Medications: Current Medications Famotidine (Pepcid) 20 mg IVP BID [facility] Last Admin: 06/16/17 10:37 Dose: 20 mg Potassium Chloride 40 meq/ (Sodium Chloride) 1,020 mls @ 100 mls/hr IV .[id number] [facility] Last Admin: 06/16/17 05:00 Dose: 100 mls/hr Metoclopramide HCl (Reglan) 5 mg IVP ACTID [facility] Last Admin: 06/16/17 12:36 Dose: 5 mg Ondansetron HCl (Zofran Inj) 4 mg IVP Q4 PRN PRN Reason: Nausea/Vomiting Last Admin: 06/16/17 08:57 Dose: 4 mg Ondansetron HCl (Zofran Odt) 4 mg PO Q8H PRN PRN Reason: Nausea/Vomiting see dose instr Last Admin: 06/15/17 12:46 Dose: 4 mg Pneumococcal Polyvalent Vaccine (Pneumovax 23 Vaccine) 0.5 ml IM .ONCE ONE Stop: 06/17/17 10:01 - Labs Labs: 06/15/17 11:28 06/15/17 11:28
[2017-06-16 14:46] LABS: BASO % 0.7 % (0.0-2.0); EOS # 0.1 K/uL (0.0-0.7); EOS % 0.8 % (0.0-4.0); HEMOGLOBIN 13.3 g/dL (11.0-16.0); LYMPH # 1.4 K/uL (1.0-4.3); LYMPH % 21.6 % (20.0-40.0); MEAN CELL VOLUME 90.4 fL (81.0-99.0); MEAN CORPUSCULAR HEMOGLOBIN 29.1 pg (27.0-31.0); MEAN CORPUSCULAR HGB CONC 32.2 g/dL (33.0-37.0); MONO # 0.5 K/uL (0.0-0.8); MONO % 8.4 % (0.0-10.0); NEUT # 4.3 K/uL (1.8-7.0); NEUT % 68.5 % (50.0-75.0); NRBC % 0.2 % (0.0-2.0); RBC 4.57 Mil/uL (3.80-5.20); RED CELL DISTRIBUTION WIDTH 13.6 % (11.5-14.5); WHITE BLOOD COUNT 6.3 K/uL (4.8-10.8)
[2017-06-16 15:14] LABS: ALBUMIN 3.6 g/dL (3.5-5.0)
[2017-06-16 15:17] LABS: AST/SGOT 29 U/L (14-36); GFR AFRICAN-AMERICAN > 60; GFR NON-AFRICAN AMERICAN > 60
[2017-06-16 15:18] LABS: ALB/GLOB RATIO 1.2 (1.0-2.1); ALT/SGPT 21 U/L (9-52); CALCIUM 8.7 mg/dl (8.6-10.4)
[2017-06-16 15:20] LABS: BLOOD UREA NITROGEN < 2 mg/dL (7-17)
[2017-06-16] MEDS: Dextrose 5%/0.45% NS 1,000 ML IV SCH (16:29)
[2017-06-17] MEDS: Dextrose 5%/0.45% NS 1,000 ML IV SCH ×2 (02:05→14:30)
[2017-06-17 08:31] LABS: GFR AFRICAN-AMERICAN > 60; GFR NON-AFRICAN AMERICAN > 60
[2017-06-17 08:32] LABS: BLOOD UREA NITROGEN < 2 mg/dL (7-17); CALCIUM 8.6 mg/dl (8.6-10.4)
[2017-06-17] MEDS ORDERED: Pneumococcal 23-Valent Vaccine IM ONE (10:00)
--- NOTE | 2017-06-17 10:06 | CP.PCM.PN ---
<Aneta Markham - Last Filed: 06/17/17 10:15> Subjective - Date & Time of Evaluation Date of Evaluation: 06/17/17 Time of Evaluation: 06:15 - Subjective Subjective: GI Fellow PGY4 Progress Note Pt seen and evaluated at beside, pt reports able to tolerate liquids yesterday with no further emesis. She is still very nauseas, IV Zofran and Reglan helps a little. Pt requesting advancing diet, feels like she will not vomit. Pt denies abdominal pain, fevers or chills. ROS: A 12pt ROS was obtained and was negative except as above. Objective - Vital Signs/Intake and Output Vital Signs (last 24 hours): Temp Pulse Resp BP Pulse Ox 98.7 F 70 20 120/82 98 06/17/17 08:01 06/17/17 08:01 06/17/17 08:01 06/17/17 08:01 06/17/17 08:01 Intake and Output: 06/17/17 06/17/17 06:59 18:59 Intake Total 980 Balance 980 - Medications Medications: Current Medications Famotidine (Pepcid) 20 mg IVP BID [facility] Last Admin: 06/17/17 09:04 Dose: 20 mg Dextrose/Sodium Chloride (Dextrose 5%/0.45% Ns 1000 Ml) 1,000 mls @ 100 mls/hr IV .Q10H [facility] Last Admin: 06/17/17 02:05 Dose: 100 mls/hr Metoclopramide HCl (Reglan) 5 mg IVP ACTID [facility] Last Admin: 06/17/17 08:55 Dose: 5 mg Ondansetron HCl (Zofran Inj) 4 mg IVP Q4 PRN PRN Reason: Nausea/Vomiting Last Admin: 06/17/17 06:16 Dose: 4 mg Pneumococcal Polyvalent Vaccine (Pneumovax 23 Vaccine) 0.5 ml IM .ONCE ONE Stop: 06/17/17 10:01 Last Admin: 06/17/17 09:04 Dose: Not Given - Labs Labs: 06/17/17 08:11 - Constitutional Appears: Well, Non-toxic, No Acute Distress - Head Exam Head Exam: ATRAUMATIC, NORMAL INSPECTION, NORMOCEPHALIC - Eye Exam Eye Exam: EOMI, Normal appearance, PERRL Pupil Exam: PERRL - ENT Exam ENT Exam: Mucous Membranes Moist, Normal Exam - Neck Exam Neck Exam: Full ROM, Normal Inspection - Respiratory Exam Respiratory Exam: Clear to Ausculation Bilateral, NORMAL BREATHING PATTERN - Cardiovascular Exam Cardiovascular Exam: RRR, +S1, +S2 - GI/Abdominal Exam GI & Abdominal Exam: Soft, Normal Bowel Sounds. absent: Tenderness, Organomegaly - Rectal Exam Rectal Exam: Deferred - Extremities Exam Extremities Exam: Full ROM, Normal Inspection - Back Exam Back Exam: NORMAL INSPECTION - Neurological Exam Neurological Exam: Alert, Awake, Oriented x3 - Psychiatric Exam Psychiatric exam: Normal Affect, Normal Mood - Skin Skin Exam: Dry, Intact, Normal Color, Warm Assessment and Plan - Assessment and Plan (Free Text) Assessment: This is a 26yF with history of asthma and recurrent nausea/vomiting presenting with nausea, vomiting, and diarrhea. 1. Cyclic Vomiting Syndrome 2. Hx Asthma 3. Hx Migraine Headaches 4. Hx Marijuana Use Plan: -EGD on 06/10/17 showed medium hiatal hernia, distal esophagus erythema Gastritis , doudenal bulb sub-cm clean-based ulcers -pathology: normal esophageal mucosa, mild chronic Gastritis, negative H. pylori -Continue supportive care: anti-emetics, PPI, IVFs -Pt counselled on marijuana cessation -Advance diet -Recommend outpatient follow up with established Tool Pusher on discharge <Sal Gamez - Last Filed: 06/17/17 12:52> Objective - Vital Signs/Intake and Output Vital Signs (last 24 hours): Temp Pulse Resp BP Pulse Ox 98.7 F 70 20 120/82 98 06/17/17 08:01 06/17/17 08:01 06/17/17 08:01 06/17/17 08:01 06/17/17 08:01 Intake and Output: 06/17/17 06/17/17 06:59 18:59 Intake Total 980 Balance 980 - Medications Medications: Current Medications Famotidine (Pepcid) 20 mg IVP BID [facility] Last Admin: 06/17/17 09:04 Dose: 20 mg Dextrose/Sodium Chloride (Dextrose 5%/0.45% Ns 1000 Ml) 1,000 mls @ 100 mls/hr IV .Q10H [facility] Last Admin: 06/17/17 02:05 Dose: 100 mls/hr Potassium Chloride (Potassium Chloride 20 Meq/100 Ml) 20 meq in 100 mls @ 50 mls/hr IVPB Q2H [facility]I Stop: 06/17/17 14:44 Metoclopramide HCl (Reglan) 5 mg IVP ACTID [facility] Last Admin: 06/17/17 08:55 Dose: 5 mg Ondansetron HCl (Zofran Inj) 4 mg IVP Q4 PRN PRN Reason: Nausea/Vomiting Last Admin: 06/17/17 06:16 Dose: 4 mg - Labs Labs: 06/17/17 08:11 Attending/Attestation - Attestation I have personally seen and examined this patient.: Yes I have fully participated in the care of the patient.: Yes I have reviewed all pertinent clinical information, including history, physical exam and plan: Yes Notes (Text): 06/17/17 12:49 I have seen and examined patient with GI fellow. No acute events overnight, she continues to endorse significant nausea but denies vomiting. Tolerating PO liquids without difficulty. She denies fever/chills, diarrhea. Review of vitals from today are normal. Nausea Vomiting Etiology of symptoms unclear, though could be related to CVS given association with migraine headaches - Will advance diet slowly as tolerated - Continue with supportive care, IVF hydration - Anti-emetic therapy PRN - Recent EGD biopsy results from 1 week ago reviewed showing no significant abnormalities - CT head negative for intracranial pathology - Will continue to monitor patient clinical course
--- NOTE | 2017-06-17 13:58 | CP.PCM.PN ---
Subjective - Date & Time of Evaluation Date of Evaluation: 06/17/17 Time of Evaluation: 13:57 - Subjective Subjective: TOLERATING PO LIQUIDS ADVANCE DIET IF NO VOMITING , DISCHARGE COUNSELLED ON FOOD AND RECREATIONAL USE OF DRUGS Objective - Vital Signs/Intake and Output Vital Signs (last 24 hours): Temp Pulse Resp BP Pulse Ox 98.7 F 70 20 120/82 98 06/17/17 08:01 06/17/17 08:01 06/17/17 08:01 06/17/17 08:01 06/17/17 08:01 Intake and Output: 06/17/17 06/17/17 11:59 23:59 Intake Total 980 Balance 980 - Medications Medications: Current Medications Famotidine (Pepcid) 20 mg IVP BID [facility] Last Admin: 06/17/17 09:04 Dose: 20 mg Dextrose/Sodium Chloride (Dextrose 5%/0.45% Ns 1000 Ml) 1,000 mls @ 100 mls/hr IV .Q10H [facility] Last Admin: 06/17/17 02:05 Dose: 100 mls/hr Potassium Chloride (Potassium Chloride 20 Meq/100 Ml) 20 meq in 100 mls @ 50 mls/hr IVPB Q2H [facility] Stop: 06/17/17 14:44 Metoclopramide HCl (Reglan) 5 mg IVP ACTID [facility] Last Admin: 06/17/17 08:55 Dose: 5 mg Ondansetron HCl (Zofran Inj) 4 mg IVP Q4 PRN PRN Reason: Nausea/Vomiting Last Admin: 06/17/17 06:16 Dose: 4 mg - Labs Labs: 06/17/17 08:11
[2017-06-17] MEDS: Potassium Chl 40 mEq in D5-1/2 1,000 ML IV SCH (18:45)
[2017-06-17] MEDS: Sucralfate 1 gm/10 ml Oral Susp UD PO SCH ×3 (19:37→23:37)
[2017-06-18] MEDS: Potassium Chl 40 mEq in D5-1/2 1,000 ML IV SCH ×4 (04:45→19:36)
[2017-06-18] MEDS ORDERED: Pantoprazole 40 mg EC Tab PO SCH (07:30)
--- NOTE | 2017-06-18 09:15 | CP.PCM.PN ---
<Carlos Call - Last Filed: 06/18/17 09:12> Subjective - Date & Time of Evaluation Date of Evaluation: 06/18/17 Time of Evaluation: 06:20 - Subjective Subjective: PGY5 GI Fellow Progress Note Patient seen and examined bedside this morning. The patient is very anxious, upset and has vomited multiple times this morning, including one large episode while I was at bedside. She admits to abdominal pain and nausea/vomiting with any PO intake. 12 system ROS performed and negative except where stated. Objective - Vital Signs/Intake and Output Vital Signs (last 24 hours): Temp Pulse Resp BP Pulse Ox 98.5 F 77 20 100/62 99 06/18/17 00:00 06/18/17 00:00 06/18/17 00:00 06/18/17 00:00 06/18/17 00:00 Intake and Output: 06/18/17 06/18/17 06:59 18:59 Intake Total 1300 Balance 1300 - Medications Medications: Current Medications Potassium Chloride/Dextrose/Sod Cl (Potassium Chl 40 Meq In D5-1/2ns) 1,000 mls @ 100 mls/hr IV .Q10H [facility] Last Admin: 06/18/17 04:45 Dose: Not Given Ondansetron HCl (Zofran Inj) 4 mg IVP Q4 PRN PRN Reason: Nausea/Vomiting Last Admin: 06/18/17 04:05 Dose: 4 mg Pantoprazole Sodium (Protonix Inj) 40 mg IVP ACB [facility] Last Admin: 06/18/17 08:36 Dose: Not Given Promethazine HCl (Phenergan Inj) 25 mg IM Q6H PRN PRN Reason: Nausea/Vomiting Sucralfate (Carafate Oral Susp) 1 gm PO QID [facility] Last Admin: 06/17/17 23:37 Dose: 1 gm - Labs Labs: 06/17/17 08:11 - Constitutional Appears: In Acute Distress, Other (emotional) - Eye Exam Eye Exam: EOMI, PERRL - ENT Exam ENT Exam: Mucous Membranes Dry - Respiratory Exam Respiratory Exam: Clear to Ausculation Bilateral. absent: Rales, Rhonchi, Wheezes - Cardiovascular Exam Cardiovascular Exam: RRR, +S1, +S2 - GI/Abdominal Exam GI & Abdominal Exam: Soft, Tenderness, Normal Bowel Sounds. absent: Distended, Firm, Guarding, Rigid, Organomegaly - Extremities Exam Extremities Exam: Normal Inspection. absent: Pedal Edema - Neurological Exam Neurological Exam: Alert, Awake, Oriented x3 - Psychiatric Exam Psychiatric exam: Normal Affect, Normal Mood - Skin Skin Exam: Dry, Warm Assessment and Plan - Assessment and Plan (Free Text) Assessment: Patient is a 26yo female with PMHx significant for asthma who presented with multiple bouts of nausea/vomiting -Frequent nausea/vomiting, suspect cyclic vomiting syndrome -Marjuana use -Asthma Plan: -D/C reglan -Erythromycin IV not available; Use Promethazine 25mg IM as ordered Q6HPRN, two doses as an abortive measure for this current vomiting episode -Ativan 0.5mg IVP one dose now -Liquid diet, slow, deliberate intake -IVF as ordered -Protonix 40mg IVP QAMAC -Counselled on marijuana cessation -Continue to monitor response to therapy -Recommend outpatient gastric emptying study once episode resolves <Dominguez Arriaga - Last Filed: 06/18/17 19:25> Objective - Vital Signs/Intake and Output Vital Signs (last 24 hours): Temp Pulse Resp BP Pulse Ox 98.9 F 76 20 101/66 98 06/18/17 17:25 06/18/17 17:25 06/18/17 17:25 06/18/17 17:25 06/18/17 17:25 Intake and Output: 06/18/17 06/19/17 18:59 06:59 Intake Total 800 Balance 800 - Medications Medications: Current Medications Potassium Chloride/Dextrose/Sod Cl (Potassium Chl 40 Meq In D5-1/2ns) 1,000 mls @ 100 mls/hr IV .Q10H [facility] Last Admin: 06/18/17 15:53 Dose: Not Given Ondansetron HCl (Zofran Inj) 4 mg IVP Q4 PRN PRN Reason: Nausea/Vomiting Last Admin: 06/18/17 04:05 Dose: 4 mg Pantoprazole Sodium (Protonix Inj) 40 mg IVP ACB [facility] Last Admin: 06/18/17 08:36 Dose: Not Given Promethazine HCl (Phenergan Inj) 25 mg IM Q6H PRN PRN Reason: Nausea/Vomiting Last Admin: 06/18/17 09:37 Dose: 25 mg Sucralfate (Carafate Oral Susp) 1 gm PO QID [facility] Last Admin: 06/18/17 15:52 Dose: Not Given - Labs Labs: 06/17/17 08:11 Attending/Attestation - Attestation I have personally seen and examined this patient.: Yes I have fully participated in the care of the patient.: Yes I have reviewed all pertinent clinical information, including history, physical exam and plan: Yes Notes (Text): 06/18/17 19:23 26 year old female with h/o asthma admitted with vomiting. 1. Nausea and vomiting Plan: -uncertain etiology -hasn't responded toreglan so far -dc reglan, start promethazine as above for possible cyclic vomiting syndrome -consider Gastric emptying scan outpatient -consider CT enterography outpatient or when tolerating liquids -continue ppi -marijuana cessation -IV fluids and electrolyte replacement
[2017-06-18] MEDS: Sucralfate 1 gm/10 ml Oral Susp UD PO SCH ×4 (09:50→21:36)
--- NOTE | 2017-06-18 13:20 | CP.PCM.PN ---
Subjective - Date & Time of Evaluation Date of Evaluation: 06/18/17 Time of Evaluation: 13:19 - Subjective Subjective: PT CONTINUOS TO HAVE VOMITING WITH SPITTING GI ADJUSTED MEDS D/W PT Objective - Vital Signs/Intake and Output Vital Signs (last 24 hours): Temp Pulse Resp BP Pulse Ox 98.5 F 77 20 100/62 99 06/18/17 00:00 06/18/17 00:00 06/18/17 00:00 06/18/17 00:00 06/18/17 00:00 Intake and Output: 06/18/17 06/18/17 11:59 23:59 Intake Total 800 Balance 800 - Medications Medications: Current Medications Potassium Chloride/Dextrose/Sod Cl (Potassium Chl 40 Meq In D5-1/2ns) 1,000 mls @ 100 mls/hr IV .Q10H [facility] Last Admin: 06/18/17 09:47 Dose: 100 mls/hr Ondansetron HCl (Zofran Inj) 4 mg IVP Q4 PRN PRN Reason: Nausea/Vomiting Last Admin: 06/18/17 04:05 Dose: 4 mg Pantoprazole Sodium (Protonix Inj) 40 mg IVP ACB [facility] Last Admin: 06/18/17 08:36 Dose: Not Given Promethazine HCl (Phenergan Inj) 25 mg IM Q6H PRN PRN Reason: Nausea/Vomiting Last Admin: 06/18/17 09:37 Dose: 25 mg Sucralfate (Carafate Oral Susp) 1 gm PO QID [facility] Last Admin: 06/18/17 09:50 Dose: Not Given - Labs Labs: 06/17/17 08:11
[2017-06-19] MEDS: Potassium Chl 40 mEq in D5-1/2 1,000 ML IV SCH ×4 (00:45→20:40)
[2017-06-19] MEDS: Sucralfate 1 gm/10 ml Oral Susp UD PO SCH (10:39)
--- NOTE | 2017-06-19 12:46 | CP.PCM.PN ---
<AlejandramichaelpuraCarlos - Last Filed: 06/19/17 12:43> Subjective - Date & Time of Evaluation Date of Evaluation: 06/19/17 Time of Evaluation: 11:10 - Subjective Subjective: PGY5 GI Fellow Progress Note Patient seen and examined bedside this morning. The patient admits to improvement in symptoms with Ativan/Promethazine combo yesterday. Still nauseated and uncomfortable with frequent spitting saliva in to basin at bedside. Not tolerating liquids. Abdominal pain improved. 12 system ROS performed and negative except where stated. Objective - Vital Signs/Intake and Output Vital Signs (last 24 hours): Temp Pulse Resp BP Pulse Ox 98.1 F 77 20 100/63 100 06/19/17 00:00 06/19/17 00:00 06/19/17 00:00 06/19/17 00:00 06/19/17 00:00 Intake and Output: 06/19/17 06/19/17 06:59 18:59 Intake Total 850 Balance 850 - Medications Medications: Current Medications Potassium Chloride/Dextrose/Sod Cl (Potassium Chl 40 Meq In D5-1/2ns) 1,000 mls @ 100 mls/hr IV .Q10H [facility] Last Admin: 06/19/17 05:45 Dose: 100 mls/hr Lorazepam (Ativan) 0.5 mg IVP Q8H PRN PRN Reason: Anxiety Ondansetron HCl (Zofran Inj) 4 mg IVP Q4 PRN PRN Reason: Nausea/Vomiting Last Admin: 06/19/17 11:09 Dose: 4 mg Pantoprazole Sodium (Protonix Inj) 40 mg IVP ACB [facility] Last Admin: 06/19/17 08:04 Dose: 40 mg Promethazine HCl (Phenergan Inj) 25 mg IM Q6H PRN PRN Reason: Nausea/Vomiting Last Admin: 06/18/17 09:37 Dose: 25 mg Sucralfate (Carafate Oral Susp) 1 gm PO QID [facility] Last Admin: 06/19/17 10:39 Dose: Not Given - Labs Labs: 06/17/17 08:11 - Constitutional Appears: No Acute Distress - Eye Exam Eye Exam: EOMI, PERRL - ENT Exam ENT Exam: Mucous Membranes Moist - Respiratory Exam Respiratory Exam: Clear to Ausculation Bilateral. absent: Rales, Rhonchi, Wheezes - Cardiovascular Exam Cardiovascular Exam: RRR, +S1, +S2 - GI/Abdominal Exam GI & Abdominal Exam: Soft, Tenderness (epigastric), Normal Bowel Sounds. absent : Distended, Firm, Guarding, Rigid, Organomegaly - Extremities Exam Extremities Exam: Normal Inspection. absent: Pedal Edema - Neurological Exam Neurological Exam: Alert, Awake, Oriented x3 - Psychiatric Exam Psychiatric exam: Anxious - Skin Skin Exam: Dry, Warm Assessment and Plan - Assessment and Plan (Free Text) Assessment: Patient is a 26yo female with PMHx significant for asthma who presented with multiple bouts of nausea/vomiting -Frequent nausea/vomiting, suspect cyclic vomiting syndrome -Marjuana use -Asthma Plan: -Consider D/C zofran as patient has no relief with this medication -Continue Promethazine/Ativan combo -Diet as tolerated -Protonix 40mg IVP QAMAC -D/C carafate -Counselled on marijuana cessation -Continue to monitor response to therapy -Recommend outpatient gastric emptying study once episode resolves <Yvette Story MD - Last Filed: 06/19/17 16:04> Objective - Vital Signs/Intake and Output Vital Signs (last 24 hours): Temp Pulse Resp BP Pulse Ox 98.1 F 77 20 100/63 100 06/19/17 00:00 06/19/17 00:00 06/19/17 00:00 06/19/17 00:00 06/19/17 00:00 Intake and Output: 06/19/17 06/19/17 06:59 18:59 Intake Total 850 1180 Balance 850 1180 - Medications Medications: Current Medications Acetaminophen (Tylenol 325mg Tab) 650 mg PO Q6 PRN PRN Reason: Pain, Mild (1-3) Last Admin: 06/19/17 12:54 Dose: 650 mg Potassium Chloride/Dextrose/Sod Cl (Potassium Chl 40 Meq In D5-1/2ns) 1,000 mls @ 100 mls/hr IV .Q10H [facility] Last Admin: 06/19/17 05:45 Dose: 100 mls/hr Lorazepam (Ativan) 0.5 mg IVP Q8H PRN PRN Reason: Anxiety Ondansetron HCl (Zofran Inj) 4 mg IVP Q4 PRN PRN Reason: Nausea/Vomiting Last Admin: 06/19/17 11:09 Dose: 4 mg Pantoprazole Sodium (Protonix Inj) 40 mg IVP ACB [facility] Last Admin: 06/19/17 08:04 Dose: 40 mg Promethazine HCl (Phenergan Inj) 25 mg IM Q6H PRN PRN Reason: Nausea/Vomiting Last Admin: 06/18/17 09:37 Dose: 25 mg - Labs Labs: 06/17/17 08:11 Attending/Attestation - Attestation I have personally seen and examined this patient.: Yes I have fully participated in the care of the patient.: Yes I have reviewed all pertinent clinical information, including history, physical exam and plan: Yes Notes (Text): 06/19/17 16:02 Patient seen with GI fellow. This is a 26 yo female with PMHx significant for asthma who presented with multiple bouts of nausea/vomiting and daily marijuana use. Continue anti emetics and diet as tolerated. IVF and supportive care. Continue PPI and discontinue carafate if not able to tolerate orals. Needs outpatient GES
--- NOTE | 2017-06-19 13:33 | CP.PCM.PN ---
Subjective - Date & Time of Evaluation Date of Evaluation: 06/19/17 Time of Evaluation: 13:32 - Subjective Subjective: LESS ABD. PAIN SPITTING AND INTERMITTENT VOMITING MEDS READJUSTED Objective - Vital Signs/Intake and Output Vital Signs (last 24 hours): Temp Pulse Resp BP Pulse Ox 98.1 F 77 20 100/63 100 06/19/17 00:00 06/19/17 00:00 06/19/17 00:00 06/19/17 00:00 06/19/17 00:00 - Medications Medications: Current Medications Acetaminophen (Tylenol 325mg Tab) 650 mg PO Q6 PRN PRN Reason: Pain, Mild (1-3) Last Admin: 06/19/17 12:54 Dose: 650 mg Potassium Chloride/Dextrose/Sod Cl (Potassium Chl 40 Meq In D5-1/2ns) 1,000 mls @ 100 mls/hr IV .Q10H [facility] Last Admin: 06/19/17 05:45 Dose: 100 mls/hr Lorazepam (Ativan) 0.5 mg IVP Q8H PRN PRN Reason: Anxiety Ondansetron HCl (Zofran Inj) 4 mg IVP Q4 PRN PRN Reason: Nausea/Vomiting Last Admin: 06/19/17 11:09 Dose: 4 mg Pantoprazole Sodium (Protonix Inj) 40 mg IVP ACB [facility] Last Admin: 06/19/17 08:04 Dose: 40 mg Promethazine HCl (Phenergan Inj) 25 mg IM Q6H PRN PRN Reason: Nausea/Vomiting Last Admin: 06/18/17 09:37 Dose: 25 mg - Labs Labs: 06/17/17 08:11
[2017-06-19 17:33] LABS: BASO % 0.8 % (0.0-2.0); EOS # 0.2 K/uL (0.0-0.7); EOS % 4.1 % (0.0-4.0); HEMOGLOBIN 12.7 g/dL (11.0-16.0); LYMPH # 1.9 K/uL (1.0-4.3); LYMPH % 39.4 % (20.0-40.0); MEAN CELL VOLUME 89.6 fL (81.0-99.0); MEAN CORPUSCULAR HEMOGLOBIN 29.6 pg (27.0-31.0); MEAN PLATELET VOLUME 10.3 fL (7.2-11.7); MONO # 0.5 K/uL (0.0-0.8); MONO % 9.9 % (0.0-10.0); NEUT # 2.2 K/uL (1.8-7.0); NEUT % 45.8 % (50.0-75.0); NRBC % 0.1 % (0.0-2.0); RBC 4.3 Mil/uL (3.80-5.20); RED CELL DISTRIBUTION WIDTH 13.8 % (11.5-14.5); WHITE BLOOD COUNT 4.7 K/uL (4.8-10.8)
[2017-06-19 18:03] LABS: ALBUMIN 3.3 g/dL (3.5-5.0)
[2017-06-19 18:06] LABS: ALB/GLOB RATIO 1.1 (1.0-2.1); AST/SGOT 18 U/L (14-36); GFR AFRICAN-AMERICAN > 60; GFR NON-AFRICAN AMERICAN > 60
[2017-06-19 18:07] LABS: ALT/SGPT 26 U/L (9-52); CALCIUM 8.6 mg/dl (8.6-10.4)
[2017-06-19 18:08] LABS: BLOOD UREA NITROGEN < 2 mg/dL (7-17)
[2017-06-20] MEDS: Potassium Chl 40 mEq in D5-1/2 1,000 ML IV SCH ×4 (06:45→18:04)
--- NOTE | 2017-06-20 11:18 | CP.PCM.PN ---
<AlejandramichaelpuraCarlos - Last Filed: 06/20/17 11:13> Subjective - Date & Time of Evaluation Date of Evaluation: 06/20/17 Time of Evaluation: 09:35 - Subjective Subjective: PGY5 GI Fellow Progress Note Patient seen and examined bedside this morning. The patient states she is feeling better today with less frequent vomiting after Phenergan/Ativan initiated. Still could not tolerate liquid diet per her account. No nursing documentation to support frequent vomiting as described by patient. Continues to spit frequently in to basin at bedside for unclear reason. 12 system ROS performed and negative except where stated. Objective - Vital Signs/Intake and Output Vital Signs (last 24 hours): Temp Pulse Resp BP Pulse Ox 97.1 F L 61 18 128/60 99 06/19/17 23:00 06/19/17 23:00 06/19/17 23:00 06/19/17 23:00 06/19/17 23:00 Intake and Output: 06/20/17 06/20/17 06:59 18:59 Intake Total 1650 Balance 1650 - Medications Medications: Current Medications Acetaminophen (Tylenol 325mg Tab) 650 mg PO Q6 PRN PRN Reason: Pain, Mild (1-3) Last Admin: 06/19/17 12:54 Dose: 650 mg Amitriptyline HCl (Elavil) 10 mg PO HS [facility] Potassium Chloride/Dextrose/Sod Cl (Potassium Chl 40 Meq In D5-1/2ns) 1,000 mls @ 100 mls/hr IV .Q10H [facility] Last Admin: 06/20/17 07:59 Dose: 100 mls/hr Lorazepam (Ativan) 0.5 mg IVP Q8H PRN PRN Reason: Anxiety Last Admin: 06/19/17 23:00 Dose: 0.5 mg Ondansetron HCl (Zofran Inj) 4 mg IVP Q4 PRN PRN Reason: Nausea/Vomiting Last Admin: 06/20/17 05:45 Dose: 4 mg Pantoprazole Sodium (Protonix Inj) 40 mg IVP ACB [facility] Last Admin: 06/20/17 07:50 Dose: 40 mg Promethazine HCl (Phenergan Inj) 25 mg IM Q6H PRN PRN Reason: Nausea/Vomiting Last Admin: 06/20/17 02:41 Dose: 25 mg - Labs Labs: 06/19/17 17:23 06/19/17 17:23 - Constitutional Appears: Non-toxic, No Acute Distress - Eye Exam Eye Exam: EOMI, PERRL - ENT Exam ENT Exam: Mucous Membranes Moist - Respiratory Exam Respiratory Exam: Clear to Ausculation Bilateral. absent: Rales, Rhonchi, Wheezes - Cardiovascular Exam Cardiovascular Exam: RRR, +S1, +S2 - GI/Abdominal Exam GI & Abdominal Exam: Soft, Normal Bowel Sounds. absent: Distended, Firm, Guarding, Rigid, Tenderness, Organomegaly - Extremities Exam Extremities Exam: Normal Inspection. absent: Pedal Edema - Neurological Exam Neurological Exam: Alert, Awake, Oriented x3 - Psychiatric Exam Psychiatric exam: Anxious, Depressed - Skin Skin Exam: Dry, Warm Assessment and Plan - Assessment and Plan (Free Text) Assessment: Patient is a 26yo female with PMHx significant for asthma who presented with multiple bouts of nausea/vomiting -Frequent nausea/vomiting, suspect cyclic vomiting syndrome -Marjuana use -Asthma Plan: -Improved with Phenergan/Ativan combination -Add amitriptyline 35mg (0.5mg/kg) PO QHS -Diet as tolerated -Protonix 40mg IVP QAMAC -Consider psychiatric evaluation -Counselled on marijuana cessation -Recommend outpatient gastric emptying study once episode resolves <Jez ZUNIGA,Yvette - Last Filed: 06/20/17 12:43> Objective - Vital Signs/Intake and Output Vital Signs (last 24 hours): Temp Pulse Resp BP Pulse Ox 97.1 F L 61 18 128/60 99 06/19/17 23:00 06/19/17 23:00 06/19/17 23:00 06/19/17 23:00 06/19/17 23:00 Intake and Output: 06/20/17 06/20/17 06:59 18:59 Intake Total 1650 Balance 1650 - Medications Medications: Current Medications Acetaminophen (Tylenol 325mg Tab) 650 mg PO Q6 PRN PRN Reason: Pain, Mild (1-3) Last Admin: 06/19/17 12:54 Dose: 650 mg Amitriptyline HCl (Elavil) 10 mg PO HS [facility] Amitriptyline HCl (Elavil) 25 mg PO HS [facility] Potassium Chloride/Dextrose/Sod Cl (Potassium Chl 40 Meq In D5-1/2ns) 1,000 mls @ 100 mls/hr IV .Q10H [facility] Last Admin: 06/20/17 07:59 Dose: 100 mls/hr Lorazepam (Ativan) 0.5 mg IVP Q8H PRN PRN Reason: Anxiety Last Admin: 06/19/17 23:00 Dose: 0.5 mg Ondansetron HCl (Zofran Inj) 4 mg IVP Q4 PRN PRN Reason: Nausea/Vomiting Last Admin: 06/20/17 05:45 Dose: 4 mg Pantoprazole Sodium (Protonix Inj) 40 mg IVP ACB [facility] Last Admin: 06/20/17 07:50 Dose: 40 mg Promethazine HCl (Phenergan Inj) 25 mg IM Q6H PRN PRN Reason: Nausea/Vomiting Last Admin: 06/20/17 11:28 Dose: 25 mg - Labs Labs: 06/19/17 17:23 06/19/17 17:23 Attending/Attestation - Attestation I have personally seen and examined this patient.: Yes I have fully participated in the care of the patient.: Yes I have reviewed all pertinent clinical information, including history, physical exam and plan: Yes Notes (Text): 06/20/17 12:42 Patient seen with GI fellow. This is a 26 yo female with PMHx significant for asthma who presented with multiple bouts of nausea/vomiting and daily marijuana use. Vomiting decreased and abdominal pain resolved. Complains of lack of sleep due to noise. Addede dulcolax yesterday that made her move bowel movements but small quantity. Continue anti emetics and diet as tolerated. IVF and supportive care. Continue PPI. Needs outpatient GES. Will add small dose amitryptilline to her regimen today for refractory vomiting
--- NOTE | 2017-06-20 14:18 | CP.PCM.PN ---
Subjective - Date & Time of Evaluation Date of Evaluation: 06/20/17 Time of Evaluation: 14:16 - Subjective Subjective: SPITTING CONTINUOUSLY FOR UNKNOWN REASON PT CLAIMS SHE STILL HAS VOMITING AND NURSING IS NOT DOCUMENTED COUNSELLED TO PT TO INFORM RN IF SHE VOMITS PSYCH EVAL Objective - Vital Signs/Intake and Output Vital Signs (last 24 hours): Temp Pulse Resp BP Pulse Ox 97.1 F L 61 18 128/60 99 06/19/17 23:00 06/19/17 23:00 06/19/17 23:00 06/19/17 23:00 06/19/17 23:00 Intake and Output: 06/20/17 06/20/17 11:59 23:59 Intake Total 800 Balance 800 - Medications Medications: Current Medications Acetaminophen (Tylenol 325mg Tab) 650 mg PO Q6 PRN PRN Reason: Pain, Mild (1-3) Last Admin: 06/19/17 12:54 Dose: 650 mg Amitriptyline HCl (Elavil) 10 mg PO HS [facility] Amitriptyline HCl (Elavil) 25 mg PO HS [facility] Potassium Chloride/Dextrose/Sod Cl (Potassium Chl 40 Meq In D5-1/2ns) 1,000 mls @ 100 mls/hr IV .Q10H [facility] Last Admin: 06/20/17 07:59 Dose: 100 mls/hr Lorazepam (Ativan) 0.5 mg IVP Q8H PRN PRN Reason: Anxiety Last Admin: 06/19/17 23:00 Dose: 0.5 mg Ondansetron HCl (Zofran Inj) 4 mg IVP Q4 PRN PRN Reason: Nausea/Vomiting Last Admin: 06/20/17 05:45 Dose: 4 mg Pantoprazole Sodium (Protonix Inj) 40 mg IVP ACB [facility] Last Admin: 06/20/17 07:50 Dose: 40 mg Promethazine HCl (Phenergan Inj) 25 mg IM Q6H PRN PRN Reason: Nausea/Vomiting Last Admin: 06/20/17 11:28 Dose: 25 mg - Labs Labs: 06/19/17 17:23 06/19/17 17:23
[2017-06-20 20:29] LABS: BASO % 0.4 % (0.0-2.0); EOS # 0.1 K/uL (0.0-0.7); EOS % 2.9 % (0.0-4.0); HEMOGLOBIN 12.1 g/dL (11.0-16.0); LYMPH # 1.3 K/uL (1.0-4.3); LYMPH % 31.7 % (20.0-40.0); MEAN CELL VOLUME 89.1 fL (81.0-99.0); MEAN CORPUSCULAR HEMOGLOBIN 29.4 pg (27.0-31.0); MEAN PLATELET VOLUME 10.5 fL (7.2-11.7); MONO # 0.6 K/uL (0.0-0.8); MONO % 14.3 % (0.0-10.0); NEUT # 2.1 K/uL (1.8-7.0); NEUT % 50.7 % (50.0-75.0); RBC 4.11 Mil/uL (3.80-5.20); RED CELL DISTRIBUTION WIDTH 13.8 % (11.5-14.5); WHITE BLOOD COUNT 4.2 K/uL (4.8-10.8)
[2017-06-20 20:36] LABS: GFR AFRICAN-AMERICAN > 60; GFR NON-AFRICAN AMERICAN > 60
[2017-06-20 20:37] LABS: CALCIUM 8.5 mg/dl (8.6-10.4)
[2017-06-20 20:41] LABS: BLOOD UREA NITROGEN < 2 mg/dL (7-17)
[2017-06-21] MEDS: Potassium Chl 40 mEq in D5-1/2 1,000 ML IV SCH ×3 (04:17→17:43)
--- NOTE | 2017-06-21 06:20 | CP.PCM.PN ---
<Adonay Jules - Last Filed: 06/21/17 10:10> Subjective - Date & Time of Evaluation Date of Evaluation: 06/21/17 Time of Evaluation: 06:15 - Subjective Subjective: PGY4 GI Fellow Progress Note Patient seen and examined bedside this morning. Pt continues to have vomitings, reports x5 episodes yesterday x1 in the Am, bilious without blood unable to tolerate any PO intake Denies and abd pain +BM, but little amount yesterday 12 system ROS performed and negative except where stated. Objective - Vital Signs/Intake and Output Vital Signs (last 24 hours): Temp Pulse Resp BP Pulse Ox 98.1 F 94 H 20 99/66 L 98 06/21/17 00:00 06/21/17 00:00 06/21/17 00:00 06/21/17 00:00 06/21/17 00:00 Intake and Output: 06/20/17 06/21/17 18:59 06:59 Intake Total 2200 1800 Balance 2200 1800 - Medications Medications: Current Medications Acetaminophen (Tylenol 325mg Tab) 650 mg PO Q6 PRN PRN Reason: Pain, Mild (1-3) Last Admin: 06/19/17 12:54 Dose: 650 mg Amitriptyline HCl (Elavil) 10 mg PO HS [facility] Last Admin: 06/20/17 21:26 Dose: 10 mg Amitriptyline HCl (Elavil) 25 mg PO HS [facility] Last Admin: 06/20/17 21:26 Dose: 25 mg Lorazepam (Ativan) 0.5 mg IVP Q8H PRN PRN Reason: Anxiety Last Admin: 06/20/17 16:49 Dose: 0.5 mg Ondansetron HCl (Zofran Inj) 4 mg IVP Q4 PRN PRN Reason: Nausea/Vomiting Last Admin: 06/21/17 05:34 Dose: 4 mg Pantoprazole Sodium (Protonix Inj) 40 mg IVP ACB [facility] Last Admin: 06/20/17 07:50 Dose: 40 mg Promethazine HCl (Phenergan Inj) 25 mg IM Q6H PRN PRN Reason: Nausea/Vomiting Last Admin: 06/21/17 02:53 Dose: 25 mg - Labs Labs: 06/20/17 20:22 06/20/17 20:22 - Constitutional Appears: Well, No Acute Distress - Eye Exam Eye Exam: Normal appearance - ENT Exam ENT Exam: Mucous Membranes Moist, Normal Exam - Respiratory Exam Respiratory Exam: Clear to Ausculation Bilateral, NORMAL BREATHING PATTERN. absent: Rales, Rhonchi, Wheezes, Respiratory Distress - Cardiovascular Exam Cardiovascular Exam: REGULAR RHYTHM, +S1, +S2 - GI/Abdominal Exam GI & Abdominal Exam: Soft, Normal Bowel Sounds - Extremities Exam Extremities Exam: Full ROM, Normal Capillary Refill, Normal Inspection - Neurological Exam Neurological Exam: Alert, Awake, Oriented x3 - Psychiatric Exam Psychiatric exam: Normal Affect, Normal Mood - Skin Skin Exam: Dry, Intact, Normal Color, Warm Assessment and Plan - Assessment and Plan (Free Text) Assessment: Patient is a 26yo female with PMHx significant for asthma who presented with multiple bouts of nausea/vomiting -Frequent nausea/vomiting, suspect cyclic vomiting syndrome -Marjuana use -Asthma Plan: -Continue with Phenergan/Ativan combination, with zofran -will add reglan before meals and bedtime -Continue amitriptyline 35mg (0.5mg/kg) PO QHS, may take a few days for desired effects -Will get gastric emptying scan and CT abd/pelv /w contrast -Diet as tolerated -Protonix 40mg IVP QAMAC -Consider psychiatric evaluation -Counselled on marijuana cessation D/W Dr. Story <Jez ZUNIGA,Yvette - Last Filed: 06/21/17 19:14> Objective - Vital Signs/Intake and Output Vital Signs (last 24 hours): Temp Pulse Resp BP Pulse Ox 98.6 F 84 20 183/85 H 100 06/21/17 16:00 06/21/17 16:00 06/21/17 16:00 06/21/17 16:00 06/21/17 16:00 - Medications Medications: Current Medications Acetaminophen (Tylenol 325mg Tab) 650 mg PO Q6 PRN PRN Reason: Pain, Mild (1-3) Last Admin: 06/19/17 12:54 Dose: 650 mg Amitriptyline HCl (Elavil) 10 mg PO HS [facility] Last Admin: 06/20/17 21:26 Dose: 10 mg Amitriptyline HCl (Elavil) 25 mg PO HS [facility] Last Admin: 06/20/17 21:26 Dose: 25 mg Hydroxyzine HCl (Atarax) 25 mg PO TID [facility] Potassium Chloride/Dextrose/Sod Cl (Potassium Chl 40 Meq In D5-1/2ns) 1,000 mls @ 100 mls/hr IV .Q10H [facility] Last Admin: 06/21/17 16:30 Dose: Not Given Lorazepam (Ativan) 0.5 mg IVP Q8H PRN PRN Reason: Anxiety Last Admin: 06/20/17 16:49 Dose: 0.5 mg Metoclopramide HCl (Reglan) 10 mg IVP [facility] Last Admin: 06/21/17 16:30 Dose: Not Given Ondansetron HCl (Zofran Inj) 4 mg IVP Q4 PRN PRN Reason: Nausea/Vomiting Last Admin: 06/21/17 15:45 Dose: 4 mg Pantoprazole Sodium (Protonix Inj) 40 mg IVP ACB [facility] Last Admin: 06/21/17 08:44 Dose: 40 mg Trazodone HCl (Desyrel) 50 mg PO HS [facility] - Labs Labs: 06/20/17 20:22 06/20/17 20:22 Attending/Attestation - Attestation I have personally seen and examined this patient.: Yes I have fully participated in the care of the patient.: Yes I have reviewed all pertinent clinical information, including history, physical exam and plan: Yes Notes (Text): 06/21/17 19:11 Patient seen with GI fellow. This is a 26 yo female with PMHx significant for asthma who presented with multiple bouts of nausea/vomiting and daily marijuana use. Suspicion for cyclical vomiting syndrome. Anti emetics changed several times over course of last few days but she keeps stating she is still vomiting. I see her mostly spitting saliva in bed bellamy. She was tearful during interview today due to non diagnosis of her current condition. She had EGD few weeks ago that showed gastritis H pylori negative. Will add back reglan today and get abdominal imaging and gatsric emptying. She is still on IVF and unable to keep fluids down. Added dulcolax yesterday that made her move bowel movements but small quantity. Continue anti emetics and diet as tolerated. IVF and supportive care. Continue PPI. Keep small dose amitryptilline to her regimen for refractory vomiting. Psychiatry evaluation noted.
--- NOTE | 2017-06-21 10:54 | PCM.PSYCH ---
Initial Psychiatric Evaluation - Initial Psychiatric Evaluation Type of Admission: Voluntary Legal Status: Capacity Current Medications: Active Medications Generic Name Dose Route Start Last Admin Trade Name Freq PRN Reason Stop Dose Admin Acetaminophen 650 mg 06/19/17 12:43 06/19/17 12:54 Tylenol 325mg Tab PO 650 mg Q6 PRN Administration Pain, Mild (1-3) Amitriptyline HCl 10 mg 06/20/17 22:00 06/20/17 21:26 Elavil PO 10 mg HS DAVI Administration Amitriptyline HCl 25 mg 06/20/17 22:00 06/20/17 21:26 Elavil PO 25 mg HS DAVI Administration Lorazepam 0.5 mg 06/19/17 12:42 06/20/17 16:49 Ativan IVP 0.5 mg Q8H PRN Administration Anxiety Metoclopramide HCl 10 mg 06/21/17 11:30 Reglan IVP ACHS DAVI Ondansetron HCl 4 mg 06/15/17 08:03 06/21/17 05:34 Zofran Inj IVP 4 mg Q4 PRN Administration Nausea/Vomiting Pantoprazole Sodium 40 mg 06/18/17 07:30 06/21/17 08:44 Protonix Inj IVP 40 mg ACB DAVI Administration Promethazine HCl 25 mg 06/18/17 07:53 06/21/17 02:53 Phenergan Inj IM 25 mg Q6H PRN Administration Nausea/Vomiting Past Psychiatric History - Past Psychiatric History Pertinent Medical Hx (Current Medical&Sleep Prob, Allergies): Allergies Allergy/AdvReac Type Severity Reaction Status Date / Time No Known Allergies Allergy Verified 06/14/17 18:45 No Known Home Med 06/14/17
--- NOTE | 2017-06-21 11:23 | PCM.PSYCH ---
Initial Psychiatric Evaluation - Initial Psychiatric Evaluation Type of Admission: Voluntary Legal Status: Capacity History of Present Illness and Precipitating Events: Mrs Amin is a 26 yr old female who presented to [facility] [place] ED for vomiting for 2 weeks prior to admission. Psych has now been consulted to investigate a psychiatric etiology. During my interview I noticed a well groomed , well nourished female who was overweight/mildly obese. She was spitting into the bed bellamy while I asked her questions. Upon questioning she stated she had seen Dr Hammond over the weekend however this is not true. I asked her if she has or has ever had any depressive symptoms and she said no. She admitted to sleep disturbance in the hospital due to noise level. She denied lack of interest, guilt, lack of energy, inability to concentrate, appetite changes, psychomotor issues, or suicidal ideation. She denied manic symptoms. She denied anxiety symptoms such as being restless, muscle tension, excessive worrying or easily fatigability. She denied auditory and visual hallucinations. I went back to her room at a later time to clarify her remark stating she was seen by Dr Hammond over the weekend and she again stated that she was seen by him. Then a few seconds later she stated she wasn't sure. Medications: none Psych hx: Patient denies any past psychiatric history. She denies ever taking any psychiatric medication. Family psych hx: denies Social hx: denies tobacco or alcohol use; admits to daily marijuana use "only during summer months and this is my first year using", no marijuana use for one week prior to admission Current Medications: Active Medications Generic Name Dose Route Start Last Admin Trade Name Freq PRN Reason Stop Dose Admin Acetaminophen 650 mg 06/19/17 12:43 06/19/17 12:54 Tylenol 325mg Tab PO 650 mg Q6 PRN Administration Pain, Mild (1-3) Amitriptyline HCl 10 mg 06/20/17 22:00 06/20/17 21:26 Elavil PO 10 mg HS DAVI Administration Amitriptyline HCl 25 mg 06/20/17 22:00 06/20/17 21:26 Elavil PO 25 mg HS DAVI Administration Lorazepam 0.5 mg 06/19/17 12:42 06/20/17 16:49 Ativan IVP 0.5 mg Q8H PRN Administration Anxiety Metoclopramide HCl 10 mg 06/21/17 11:30 Reglan IVP ACHS DAVI Ondansetron HCl 4 mg 06/15/17 08:03 06/21/17 05:34 Zofran Inj IVP 4 mg Q4 PRN Administration Nausea/Vomiting Pantoprazole Sodium 40 mg 06/18/17 07:30 06/21/17 08:44 Protonix Inj IVP 40 mg ACB DAVI Administration Promethazine HCl 25 mg 06/18/17 07:53 06/21/17 02:53 Phenergan Inj IM 25 mg Q6H PRN Administration Nausea/Vomiting Past Psychiatric History - Past Psychiatric History Previous Treatment History: None Pertinent Medical Hx (Current Medical&Sleep Prob, Allergies): Allergies Allergy/AdvReac Type Severity Reaction Status Date / Time No Known Allergies Allergy Verified 06/14/17 18:45 No Known Home Med 06/14/17 Review of Systems - EENT Eyes: UNREMARKABLE Ears: UNREMARKABLE Nose/Mouth/Throat: UNREMARKABLE - Breasts Breasts: UNREMARKABLE - Cardiovascular Cardiovascular: UNREMARKABLE - Respiratory Respiratory: UNREMARKABLE - Gastrointestinal Gastrointestinal: Vomiting - Genitourinary Genitourinary: UNREMARKABLE - Menstruation Menstruation: UNREMARKABLE - Musculoskeletal Musculoskeletal: UNREMARKABLE - Integumentary Integumentary: UNREMARKABLE - Neurological Neurological: UNREMARKABLE - Psychiatric Psychiatric: absent: Abnormal Sleep Pattern, Anhedonia, Anxiety, Auditory Hallucinations, Change in Appetite, Depression, Difficulty Concentrating, Hallucinations, Homicidal Ideation, Hopelessness, Panic Attacks, Suicidal Ideation, Visual Hallucinations Mental Status Examination - Personal Presentation Personal Presentation: Looks stated age - Affect Affect: Broad - Motor Activity Motor Activity: Calm - Reliability in Providing Information Reliability in Providing Information: Good - Speech Speech: Organized - Mood Mood: Neutral - Formal Thought Process Formal Thought Process: No Impairment - Obsessions/Compulsions Obsessions: None Compulsions: None - Cognitive Functions Orientation: Person, Place, Time Attention/Concentration: Attentive Abstract Thinking: Arabi Judgement: Intact, as evidence by: Good judgement DSM 5 DX - DSM 5 DSM 5 Diagnosis: Mood disorder - Recommended/Plan of Treatment Treatment Recommendations and Plan of Treatment: Trazadone 50mg po daily - Smoking Cessation Smoking Cessation Initiated: No Reason for not providing: non-smoker
[2017-06-21] MEDS ORDERED: Iohexol 240 (50 ml) PO ONE (12:45)
--- NOTE | 2017-06-21 13:47 | CP.PCM.PN ---
Subjective - Date & Time of Evaluation Date of Evaluation: 06/21/17 Time of Evaluation: 13:46 - Subjective Subjective: CONTINUOS TO HAVE VOMITING AND SPITTING GI HAS ORDERED CT SCAN CONT PRESENT MEDS AWAITING PSYCH EVAL Objective - Vital Signs/Intake and Output Vital Signs (last 24 hours): Temp Pulse Resp BP Pulse Ox 98.3 F 86 20 126/100 H 100 06/21/17 07:40 06/21/17 07:40 06/21/17 07:40 06/21/17 07:40 06/21/17 07:40 Intake and Output: 06/21/17 06/21/17 11:59 23:59 Intake Total 900 Balance 900 - Medications Medications: Current Medications Acetaminophen (Tylenol 325mg Tab) 650 mg PO Q6 PRN PRN Reason: Pain, Mild (1-3) Last Admin: 06/19/17 12:54 Dose: 650 mg Amitriptyline HCl (Elavil) 10 mg PO HS DAVI Last Admin: 06/20/17 21:26 Dose: 10 mg Amitriptyline HCl (Elavil) 25 mg PO HS DAVI Last Admin: 06/20/17 21:26 Dose: 25 mg Lorazepam (Ativan) 0.5 mg IVP Q8H PRN PRN Reason: Anxiety Last Admin: 06/20/17 16:49 Dose: 0.5 mg Metoclopramide HCl (Reglan) 10 mg IVP ACHS DAVI Last Admin: 06/21/17 12:35 Dose: 10 mg Ondansetron HCl (Zofran Inj) 4 mg IVP Q4 PRN PRN Reason: Nausea/Vomiting Last Admin: 06/21/17 05:34 Dose: 4 mg Pantoprazole Sodium (Protonix Inj) 40 mg IVP ACB DAVI Last Admin: 06/21/17 08:44 Dose: 40 mg Promethazine HCl (Phenergan Inj) 25 mg IM Q6H PRN PRN Reason: Nausea/Vomiting Last Admin: 06/21/17 02:53 Dose: 25 mg - Labs Labs: 06/20/17 20:22 06/20/17 20:22
--- NOTE | 2017-06-22 08:45 | CP.PCM.PN ---
Addendum entered and electronically signed by Adonay Jules DO 06/22/17 08:46: Assessment Patient is a 26yo female with PMHx significant for asthma who presented with multiple bouts of nausea/vomiting -Frequent nausea/vomiting, suspect cyclic vomiting syndrome -Marijuana use -Asthma Plan: -Continue with Phenergan/Ativan combination, with zofran prn -continue reglan before meals and bedtime -Continue amitriptyline 35mg (0.5mg/kg) PO QHS, may take a few days for desired effects -Will hold on any imaging including gastric emptying and CT abd, for now; if pt' s symptoms worsen will proceed with CT abd -Diet as tolerated -Protonix 40mg IVP QAMAC -Counselled on marijuana cessation Original Note: <Adonay Jules - Last Filed: 06/22/17 08:42> Subjective - Date & Time of Evaluation Date of Evaluation: 06/22/17 Time of Evaluation: 08:00 - Subjective Subjective: PGY4 GI Fellow Progress Note Patient seen and examined bedside this morning. Last episode of emesis was yesterday afternoon able to tolerate liquids Denies any abd pain Nausea and vomiting improving 12 system ROS performed and negative except where stated. Objective - Vital Signs/Intake and Output Vital Signs (last 24 hours): Temp Pulse Resp BP Pulse Ox 98.5 F 87 20 118/78 100 06/22/17 00:00 06/22/17 00:00 06/22/17 00:00 06/22/17 00:00 06/22/17 00:00 Intake and Output: 06/22/17 06/22/17 06:59 18:59 Intake Total 1500 Balance 1500 - Medications Medications: Current Medications Acetaminophen (Tylenol 325mg Tab) 650 mg PO Q6 PRN PRN Reason: Pain, Mild (1-3) Last Admin: 06/19/17 12:54 Dose: 650 mg Amitriptyline HCl (Elavil) 10 mg PO HS DAVI Last Admin: 06/21/17 21:32 Dose: Not Given Amitriptyline HCl (Elavil) 25 mg PO HS DAVI Last Admin: 06/21/17 21:32 Dose: Not Given Hydroxyzine HCl (Atarax) 25 mg PO TID DAVI Last Admin: 06/21/17 18:00 Dose: Not Given Potassium Chloride/Dextrose/Sod Cl (Potassium Chl 40 Meq In D5-1/2ns) 1,000 mls @ 100 mls/hr IV .Q10H [facility] Last Admin: 06/21/17 16:30 Dose: Not Given Lorazepam (Ativan) 0.5 mg IVP Q8H PRN PRN Reason: Anxiety Last Admin: 06/22/17 03:55 Dose: 0.5 mg Metoclopramide HCl (Reglan) 10 mg IVP ACHS [facility] Last Admin: 06/22/17 07:53 Dose: 10 mg Ondansetron HCl (Zofran Inj) 4 mg IVP Q4 PRN PRN Reason: Nausea/Vomiting Last Admin: 06/22/17 03:49 Dose: 4 mg Pantoprazole Sodium (Protonix Inj) 40 mg IVP ACB [facility] Last Admin: 06/22/17 07:51 Dose: 40 mg Trazodone HCl (Desyrel) 50 mg PO HS [facility] Last Admin: 06/21/17 21:32 Dose: Not Given - Labs Labs: 06/20/17 20:22 06/20/17 20:22 - Head Exam Head Exam: ATRAUMATIC, NORMOCEPHALIC - Eye Exam Eye Exam: Normal appearance - ENT Exam ENT Exam: Mucous Membranes Moist, Normal Exam - Respiratory Exam Respiratory Exam: Clear to Ausculation Bilateral, NORMAL BREATHING PATTERN. absent: Rales, Rhonchi, Wheezes, Respiratory Distress - Cardiovascular Exam Cardiovascular Exam: REGULAR RHYTHM, +S1, +S2 - GI/Abdominal Exam GI & Abdominal Exam: Soft, Hernia, Normal Bowel Sounds. absent: Firm, Guarding , Rigid, Tenderness, Organomegaly - Extremities Exam Extremities Exam: Full ROM, Normal Inspection - Neurological Exam Neurological Exam: Alert, Awake, Normal Gait - Psychiatric Exam Psychiatric exam: Normal Affect, Normal Mood - Skin Skin Exam: Dry, Intact, Normal Color, Warm <Sal Gamez - Last Filed: 06/22/17 09:09> Objective - Vital Signs/Intake and Output Vital Signs (last 24 hours): Temp Pulse Resp BP Pulse Ox 98.5 F 87 20 118/78 100 06/22/17 00:00 06/22/17 00:00 06/22/17 00:00 06/22/17 00:00 06/22/17 00:00 Intake and Output: 06/22/17 06/22/17 06:59 18:59 Intake Total 1500 Balance 1500 - Medications Medications: Current Medications Acetaminophen (Tylenol 325mg Tab) 650 mg PO Q6 PRN PRN Reason: Pain, Mild (1-3) Last Admin: 06/19/17 12:54 Dose: 650 mg Amitriptyline HCl (Elavil) 10 mg PO [facility] Last Admin: 06/21/17 21:32 Dose: Not Given Amitriptyline HCl (Elavil) 25 mg PO HS [facility] Last Admin: 06/21/17 21:32 Dose: Not Given Hydroxyzine HCl (Atarax) 25 mg PO TID [facility] Last Admin: 06/21/17 18:00 Dose: Not Given Potassium Chloride/Dextrose/Sod Cl (Potassium Chl 40 Meq In D5-1/2ns) 1,000 mls @ 100 mls/hr IV .Q10H [facility] Last Admin: 06/21/17 16:30 Dose: Not Given Lorazepam (Ativan) 0.5 mg IVP Q8H PRN PRN Reason: Anxiety Last Admin: 06/22/17 03:55 Dose: 0.5 mg Metoclopramide HCl (Reglan) 10 mg IVP ACHS [facility] Last Admin: 06/22/17 07:53 Dose: 10 mg Ondansetron HCl (Zofran Inj) 4 mg IVP Q4 PRN PRN Reason: Nausea/Vomiting Last Admin: 06/22/17 03:49 Dose: 4 mg Pantoprazole Sodium (Protonix Inj) 40 mg IVP ACB [facility] Last Admin: 06/22/17 07:51 Dose: 40 mg Trazodone HCl (Desyrel) 50 mg PO [facility] Last Admin: 06/21/17 21:32 Dose: Not Given - Labs Labs: 06/20/17 20:22 06/20/17 20:22 Attending/Attestation - Attestation I have personally seen and examined this patient.: Yes I have fully participated in the care of the patient.: Yes I have reviewed all pertinent clinical information, including history, physical exam and plan: Yes Notes (Text): 06/22/17 09:04 I have seen and examined patient with GI fellow. No acute events overnight, she continues to endorse nausea however she was able to tolerate liquids today without any recurrent emesis. She denies abdominal pain, fever/chills. Review of vitals from today are normal. Asthma Nausea, vomiting - persistent - Advance diet slowly as tolerated - Continue with anti-emetic therapy PRN - Patient to undergo CT imaging today, will follow up results - No indication for gastric emptying study at this present time given patient on multiple medications that can cause false positive/negative results. She would likely benefit from a proper outpatient emptying study when certain medication can be held prior to test. - If no clinical improvement by tomorrow, will consider repeat endoscopic evaluation
--- NOTE | 2017-06-22 13:43 | CP.PCM.PN ---
Subjective - Date & Time of Evaluation Date of Evaluation: 06/22/17 Time of Evaluation: 13:42 - Subjective Subjective: PT STILL HAS SPITTING AND CLAIMS VOMITING ON MULTIPLE MEDS CT REPEAT ON HOLD PER GI Objective - Vital Signs/Intake and Output Vital Signs (last 24 hours): Temp Pulse Resp BP Pulse Ox 98.5 F 87 20 118/78 100 06/22/17 00:00 06/22/17 00:00 06/22/17 00:00 06/22/17 00:00 06/22/17 00:00 Intake and Output: 06/22/17 06/22/17 11:59 23:59 Intake Total 800 Balance 800 - Medications Medications: Current Medications Acetaminophen (Tylenol 325mg Tab) 650 mg PO Q6 PRN PRN Reason: Pain, Mild (1-3) Last Admin: 06/19/17 12:54 Dose: 650 mg Amitriptyline HCl (Elavil) 10 mg PO HS [facility] Last Admin: 06/21/17 21:32 Dose: Not Given Amitriptyline HCl (Elavil) 25 mg PO HS DAVI Last Admin: 06/21/17 21:32 Dose: Not Given Hydroxyzine HCl (Atarax) 25 mg PO TID DAVI Last Admin: 06/22/17 09:43 Dose: Not Given Potassium Chloride/Dextrose/Sod Cl (Potassium Chl 40 Meq In D5-1/2ns) 1,000 mls @ 100 mls/hr IV .Q10H [facility] Last Admin: 06/21/17 16:30 Dose: Not Given Lorazepam (Ativan) 0.5 mg IVP Q8H PRN PRN Reason: Anxiety Last Admin: 06/22/17 03:55 Dose: 0.5 mg Metoclopramide HCl (Reglan) 10 mg IVP ACHS DAVI Last Admin: 06/22/17 11:52 Dose: 10 mg Ondansetron HCl (Zofran Inj) 4 mg IVP Q4 PRN PRN Reason: Nausea/Vomiting Last Admin: 06/22/17 03:49 Dose: 4 mg Pantoprazole Sodium (Protonix Inj) 40 mg IVP ACB DAVI Last Admin: 06/22/17 07:51 Dose: 40 mg Trazodone HCl (Desyrel) 50 mg PO HS DAVI Last Admin: 06/21/17 21:32 Dose: Not Given - Labs Labs: 06/20/17 20:22 06/20/17 20:22
[2017-06-22] MEDS: Potassium Chl 40 mEq in D5-1/2 1,000 ML IV SCH (22:30)
[2017-06-23] MEDS ORDERED: Propofol 10 mg/ml Inj (20 ML) ONE ×2 (13:20→13:29)
[2017-06-23] MEDS ORDERED: Midazolam 2 MG/2 ML VIAL ONE (13:20)
--- NOTE | 2017-06-23 13:37 | CP.PCM.PN ---
Subjective - Date & Time of Evaluation Date of Evaluation: 06/23/17 Time of Evaluation: 13:37 - Subjective Subjective: NO CHANGE IN SYMPTOMS FOR EGD TODA Objective - Vital Signs/Intake and Output Vital Signs (last 24 hours): Temp Pulse Resp BP Pulse Ox 98 F 74 20 105/68 100 06/23/17 13:17 06/23/17 13:17 06/23/17 13:17 06/23/17 13:17 06/23/17 13:17 Intake and Output: 06/23/17 06/23/17 11:59 23:59 Intake Total 0 Balance 0 - Medications Medications: Current Medications Acetaminophen (Tylenol 325mg Tab) 650 mg PO Q6 PRN PRN Reason: Pain, Mild (1-3) Last Admin: 06/19/17 12:54 Dose: 650 mg Amitriptyline HCl (Elavil) 10 mg PO HS [facility] Last Admin: 06/22/17 21:19 Dose: Not Given Amitriptyline HCl (Elavil) 25 mg PO HS [facility] Last Admin: 06/22/17 21:19 Dose: Not Given Hydroxyzine HCl (Atarax) 25 mg PO TID [facility] Last Admin: 06/23/17 13:21 Dose: Not Given Potassium Chloride/Dextrose/Sod Cl (Potassium Chl 40 Meq In D5-1/2ns) 1,000 mls @ 100 mls/hr IV .Q10H [facility] Last Admin: 06/22/17 22:30 Dose: 100 mls/hr Lorazepam (Ativan) 0.5 mg IVP Q8H PRN PRN Reason: Anxiety Last Admin: 06/22/17 03:55 Dose: 0.5 mg Metoclopramide HCl (Reglan) 10 mg IVP ACHS [facility] Last Admin: 06/23/17 12:02 Dose: 10 mg Ondansetron HCl (Zofran Inj) 4 mg IVP Q4 PRN PRN Reason: Nausea/Vomiting Last Admin: 06/23/17 08:28 Dose: 4 mg Pantoprazole Sodium (Protonix Inj) 40 mg IVP ACB [facility] Last Admin: 06/23/17 08:23 Dose: 40 mg Trazodone HCl (Desyrel) 50 mg PO HS [facility] Last Admin: 06/22/17 21:19 Dose: Not Given - Labs Labs: 06/20/17 20:22 07/30/17 20:22
[2017-06-23] MEDS: Potassium Chl 40 mEq in D5-1/2 1,000 ML IV SCH (18:30)
[2017-06-24] MEDS: Potassium Chl 40 mEq in D5-1/2 1,000 ML IV SCH ×2 (03:56→05:57)
--- NOTE | 2017-06-24 05:10 | CP.PCM.PN ---
Subjective - Date & Time of Evaluation Date of Evaluation: 06/24/17 Time of Evaluation: 05:03 - Subjective Subjective: Patient seen and examined, resting comfortably in bed. No acute events overnight. She attempted meal consumption last night with baked fish and brown rice but could not tolerate and vomited as per patient. She is able to tolerate sips of water and Ensure without vomiting. She denies abdominal pain, fever/chills. s/p EGD yesterday showing erosive esophagitis, no obstructive pathology. 12 point review of systems performed, negative aside from mentioned above. Objective - Vital Signs/Intake and Output Vital Signs (last 24 hours): Temp Pulse Resp BP Pulse Ox 98.5 F 88 20 94/56 L 99 06/24/17 00:00 06/24/17 00:00 06/24/17 00:00 06/24/17 00:00 06/24/17 00:00 Intake and Output: 06/23/17 06/24/17 18:59 06:59 Intake Total 1000 800 Balance 1000 800 - Medications Medications: Current Medications Potassium Chloride/Dextrose/Sod Cl (Potassium Chl 40 Meq In D5-1/2ns) 1,000 mls @ 100 mls/hr IV .Q10H [facility] Last Admin: 06/23/17 18:30 Dose: 100 mls/hr Ondansetron HCl (Zofran Inj) 4 mg IVP Q4 PRN PRN Reason: Nausea/Vomiting Last Admin: 06/23/17 21:33 Dose: 4 mg Pantoprazole Sodium (Protonix Inj) 40 mg IVP ACBD [facility] Last Admin: 06/23/17 16:30 Dose: 40 mg Trazodone HCl (Desyrel) 50 mg PO HS [facility] Last Admin: 06/23/17 21:40 Dose: 50 mg - Labs Labs: 06/20/17 20:22 06/20/17 20:22 - Constitutional Appears: Non-toxic, No Acute Distress - Head Exam Head Exam: NORMAL INSPECTION - Eye Exam Eye Exam: EOMI, Normal appearance - ENT Exam ENT Exam: Mucous Membranes Moist - Respiratory Exam Respiratory Exam: Clear to Ausculation Bilateral - Cardiovascular Exam Cardiovascular Exam: REGULAR RHYTHM, +S1, +S2 - GI/Abdominal Exam GI & Abdominal Exam: Soft, Normal Bowel Sounds Additional comments: non tender to palpation in four quadrants - Extremities Exam Extremities Exam: Normal Inspection - Skin Skin Exam: Dry, Intact, Normal Color, Warm Assessment and Plan - Assessment and Plan (Free Text) Assessment: Asthma Persistent nausea, vomiting - unclear etiology s/p EGD yesterday showing erosive esophagitis without gross obstructive pathology Plan: - Diet as tolerated - Anti-emetic therapy PRN - Await biopsies from EGD yesterday - Continue with PPI therapy twice daily - Given continued symptoms without clear etiology, would obtain CT imaging to rule out intraabdominal pathology. Ideally would obtain contrast enhanced study , but patient with difficulty tolerating PO, will get non-contrast study for time being - If workup remains negative, would suggest hospital discharge and additional outpatient management including nuclear emptying study. This plan was discussed with patient in detail.
--- NOTE | 2017-06-24 11:37 | CT ---
PROCEDURE: CT Abdomen and Pelvis without Oral or IV contrast. HISTORY: nausea, vomiting COMPARISON: Obstructive series performed 06/14/17, CT abdomen and pelvis with contrast performed 06/03/17 TECHNIQUE: Contiguous axial images of the abdomen and pelvis. No oral or IV contrast administered. Coronal and Sagittal reformats generated and reviewed. Radiation dose: Total exam DLP = 378.08 mGy-cm. This CT exam was performed using one or more of the following dose reduction techniques: Automated exposure control, adjustment of the mA and/or kV according to patient size, and/or use of iterative reconstruction technique. FINDINGS: There is limited evaluation of the solid organs without the administration of IV contrast. LOWER THORAX: No visible consolidation, pleural effusion, or pneumothorax. Thick-walled distal esophagus. LIVER: Unremarkable unenhanced appearance. GALLBLADDER AND BILE DUCTS: Unremarkable unenhanced appearance. PANCREAS: Unremarkable unenhanced appearance. SPLEEN: 1 mm probable splenule. Otherwise unremarkable unenhanced appearance. ADRENALS: Unremarkable unenhanced appearance. KIDNEYS AND URETERS: No hydronephrosis or obstructing renal calculus. Faintly visualized left lower pole hypodensity. Previously demonstrated tiny right upper pole hypodensity is not appreciated on this noncontrast study. BLADDER: The urinary bladder appears unremarkable. REPRODUCTIVE: Uterus is present. APPENDIX: The presumed appendix appears within normal limits of caliber. No secondary signs of acute appendicitis. BOWEL: The stomach is nondistended. Lack of oral contrast limits evaluation for bowel pathology. The bowel loops appear within normal limits of caliber without evidence of intestinal obstruction. Colonic wall thickening of the right and transverse colon, and to a lesser extent portions of the left colon, worrisome for colitis (i.e. infectious, inflammatory, ischemic). PERITONEUM: No significant free fluid. No definite free air. LYMPH NODES: No bulky lymphadenopathy identified. VASCULATURE: No aortic aneurysm. BONES: No acute osseous abnormality is detected. OTHER FINDINGS: 10 mm nodular density within the deep left breast of unclear significance. Recommend clinical correlation including physical exam and dedicated breast imaging as indicated. 7 mm fat containing umbilical hernia. IMPRESSION: Colonic wall thickening of the right and transverse colon, and to a lesser extent portions of the left colon, worrisome for colitis (i.e. infectious, inflammatory, ischemic). 10 mm nodular density within the deep left breast of unclear significance, possibly complex cyst however solid nodules not excluded. Recommend clinical correlation including physical exam and dedicated breast imaging as indicated. The distal esophagus appears thick walled. Correlate clinically. Additional findings as above.
[2017-06-25] MEDS: Potassium Chl 40 mEq in D5-1/2 1,000 ML IV SCH (06:38)
--- NOTE | 2017-06-25 10:02 | CP.PCM.PN ---
<Ana Julesdavid - Last Filed: 06/25/17 11:51> Subjective - Date & Time of Evaluation Date of Evaluation: 06/25/17 Time of Evaluation: 06:00 - Subjective Subjective: PGY4 GI Follow-up Pt seen and examined bedside Had emesis in the AM Able to tolerate soup and PO intake intermittantly and overnight No abd pain Denies any CP or SOB wants to go home No BM in a few days ROS: 10 point ROS conducted, other than what was states above its otherwise neg Objective - Vital Signs/Intake and Output Vital Signs (last 24 hours): Temp Pulse Resp BP Pulse Ox 98 F 75 21 103/68 99 06/25/17 08:18 06/25/17 08:18 06/25/17 08:18 06/25/17 08:18 06/25/17 08:18 Intake and Output: 06/25/17 06/25/17 06:59 18:59 Intake Total 300 Balance 300 - Medications Medications: Current Medications Ondansetron HCl (Zofran Inj) 4 mg IVP Q4 PRN PRN Reason: Nausea/Vomiting Last Admin: 06/24/17 21:47 Dose: 4 mg Pantoprazole Sodium (Protonix Inj) 40 mg IVP ACBD DAVI Last Admin: 06/25/17 06:38 Dose: 40 mg Trazodone HCl (Desyrel) 50 mg PO HS DAVI Last Admin: 06/24/17 21:46 Dose: 50 mg - Labs Labs: 06/20/17 20:22 06/20/17 20:22 - Constitutional Appears: Non-toxic, No Acute Distress - Head Exam Head Exam: ATRAUMATIC, NORMOCEPHALIC - Eye Exam Eye Exam: Normal appearance - ENT Exam ENT Exam: Mucous Membranes Moist, Normal Exam - Neck Exam Neck Exam: Normal Inspection - Respiratory Exam Respiratory Exam: Clear to Ausculation Bilateral, Respiratory Distress, NORMAL BREATHING PATTERN. absent: Rales, Rhonchi, Wheezes - Cardiovascular Exam Cardiovascular Exam: REGULAR RHYTHM, +S1, +S2 - GI/Abdominal Exam GI & Abdominal Exam: Soft, Normal Bowel Sounds. absent: Guarding, Rigid, Tenderness - Extremities Exam Extremities Exam: Full ROM, Normal Capillary Refill, Normal Inspection - Neurological Exam Neurological Exam: Alert, Awake, Oriented x3 - Psychiatric Exam Psychiatric exam: Normal Affect, Normal Mood - Skin Skin Exam: Dry, Intact, Normal Color, Warm Assessment and Plan - Assessment and Plan (Free Text) Assessment: Cristopher Amin is a 26F w/o sih med hx who presents to the ED with complaints of intractable vomiting. An ext w/u including EGD was performed and no obvious cause was identified. Pt was noted to have gastritis and distal Grade C esophagitis Persistent nausea, vomiting - unclear etiology s/p EGD yesterday showing erosive esophagitis without gross obstructive pathology Plan: - Ct abd reviewed, no sig pathology accounting for symptoms -advised to avoid marijuana use - Advance diet as tolerated - Continue protonix 40mg BID - F/U with primary out pt GI - zofran PO PRN - if symptoms persist or worsen advised to return to the ED - Okay to d/c from Gi Standpoint - Had an extensive conversation with pt, she desires to go home D/W Dr. Arriaga <Dominguez Arriaga - Last Filed: 06/25/17 12:24> Objective - Vital Signs/Intake and Output Vital Signs (last 24 hours): Temp Pulse Resp BP Pulse Ox 98 F 75 21 103/68 99 06/25/17 08:18 06/25/17 08:18 06/25/17 08:18 06/25/17 08:18 06/25/17 08:18 Intake and Output: 06/25/17 06/25/17 06:59 18:59 Intake Total 300 Balance 300 - Medications Medications: Current Medications Ondansetron HCl (Zofran Inj) 4 mg IVP Q4 PRN PRN Reason: Nausea/Vomiting Last Admin: 06/25/17 10:15 Dose: 4 mg Pantoprazole Sodium (Protonix Inj) 40 mg IVP ACBD DAVI Last Admin: 06/25/17 06:38 Dose: 40 mg Trazodone HCl (Desyrel) 50 mg PO HS DAVI Last Admin: 06/24/17 21:46 Dose: 50 mg - Labs Labs: 06/20/17 20:22 06/20/17 20:22 Attending/Attestation - Attestation I have personally seen and examined this patient.: Yes I have fully participated in the care of the patient.: Yes I have reviewed all pertinent clinical information, including history, physical exam and plan: Yes Notes (Text): 06/25/17 12:22 26 year old female admitted with intractable nausea and vomiting. 1. Nausea and vomiting 2. Erosive esophagitis Plan: - continue high dose acid suppressive therapy - advance diet - ok to dc from gi standpoint - zofran as needed for n/v
--- NOTE | 2017-06-25 13:22 | CP.PCM.DIS ---
Provider - Provider Date of Admission: 06/16/17 15:11 Attending physician: Georgina Blanco MD Time Spent in preparation of Discharge (in minutes): 30 Hospital Course - Lab Results Lab Results: Micro Results 06/20/17 14:20 Urine,Clean Catch Urine Culture - Final 10-50,000 CFU/ML. MULTIPLE SPECIES. PROBABLE CONTAMINATION. Most Recent Lab Values WBC 4.2 K/uL (4.8-10.8) L 06/20/17 20: RBC 4.11 Mil/uL (3.80-5.20) 06/20/17 20:22 Hgb 12.1 g/dL (11.0-16.0) 06/20/17 20: Hct 36.6 % (34.0-47.0) 06/20/17 20: MCV 89.1 fL (81.0-99.0) 06/20/17 20: MCH 29.4 pg (27.0-31.0) 06/20/17 20: MCHC 33.0 g/dL (33.0-37.0) 06/20/17 20:22 RDW 13.8 % (11.5-14.5) 06/20/17 20: Plt Count 179 K/uL (130-400) 06/20/17 20:22 MPV 10.5 fL (7.2-11.7) 06/20/17 20:22 Neut % (Auto) 50.7 % (50.0-75.0) 06/20/17 20: Lymph % (Auto) 31.7 % (20.0-40.0) 06/20/17 20: [facility] % (Auto) 14.3 % (0.0-10.0) H 06/20/17 20:22 Eos % (Auto) 2.9 % (0.0-4.0) 06/20/17 20: Baso % (Auto) 0.4 % (0.0-2.0) 06/20/17 20: Neut # 2.1 K/uL (1.8-7.0) 06/20/17 20: Lymph # 1.3 K/uL (1.0-4.3) 06/20/17 20: [facility] # 0.6 K/uL (0.0-0.8) 06/20/17 20:22 Eos # 0.1 K/uL (0.0-0.7) 06/20/17 20:22 Baso # 0.0 K/uL (0.0-0.2) 06/20/17 20:22 Differential Comment 06/16/17 14:29 Sodium 135 mmol/L (132-148) 06/20/17 20:22 Potassium 4.0 mmol/L (3.6-5.2) 06/20/17 20:22 Chloride 102 mmol/L (98-107) 06/20/17 20:22 Carbon Dioxide 22 mmol/L (22-30) 06/20/17 20:22 Anion Gap 15 (10-20) 06/20/17 20:22 BUN < 2 mg/dL (7-17) L 06/20/17 20:22 Creatinine 0.7 MG/DL (0.7-1.2) 06/20/17 20:22 Est GFR ( Amer) > 60 06/20/17 20:22 Est GFR (Non-Af Amer) > 60 06/20/17 20:22 Random Glucose 91 mg/dL (65-105) 06/20/17 20:22 Calcium 8.5 mg/dl (8.6-10.4) L 06/20/17 20:22 Total Bilirubin 0.8 mg/dL (0.2-1.3) 06/19/17 17:23 AST 18 U/L (14-36) 06/19/17 17:23 ALT 26 U/L (9-52) 06/19/17 17:23 Alkaline Phosphatase 35 U/L (38-126) L 06/19/17 17:23 Total Protein 6.2 g/dL (6.3-8.3) L 06/19/17 17:23 Albumin 3.3 g/dL (3.5-5.0) L 06/19/17 17:23 Globulin 3.0 gm/dL (2.2-3.9) 06/19/17 17:23 Albumin/Globulin Ratio 1.1 (1.0-2.1) 06/19/17 17:23 Lipase 63 U/L (23-300) 06/14/17 20:25 Urine Color Yellow (YELLOW) 06/14/17 20:25 Urine Clarity Hazy (Clear) 06/14/17 20:25 Urine pH 6.0 (5.0-8.0) 06/14/17 20:25 Ur Specific Hooks 1.018 (1.003-1.030) 06/14/17 20:25 Urine Protein Negative mg/dL (NEGATIVE) 06/14/17 20:25 Urine Glucose (UA) Normal mg/dL (Normal) 06/14/17 20:25 Urine Ketones 2+ mg/dL (NEGATIVE) H 06/14/17 20:25 Urine Blood Negative (NEGATIVE) 06/14/17 20:25 Urine Nitrate Negative (NEGATIVE) 06/14/17 20:25 Urine Bilirubin Negative (NEGATIVE) 06/14/17 20:25 Urine Urobilinogen 4.0 mg/dL (0.2-1.0) H 06/14/17 20:25 Ur Leukocyte Esterase 1+ Gildardo/uL (Negative) H 06/14/17 20:25 Urine WBC (Auto) 7 /hpf (0-5) H 06/14/17 20:25 Urine RBC (Auto) 5 /hpf (0-3) H 06/14/17 20:25 Ur Squamous Epith Cells 59 /hpf (0-5) H 06/14/17 20:25 Urine Bacteria Few (<OCC) H 06/14/17 20:25 Urine HCG, Qual Negative (NEGATIVE) 06/23/17 07:12 Urine Opiates Screen Negative (NEGATIVE) 06/14/17 20:25 Urine Methadone Screen Negative (NEGATIVE) 06/14/17 20:25 Ur Barbiturates Screen Negative (NEGATIVE) 06/14/17 20:25 Ur Phencyclidine Scrn Negative (NEGATIVE) 06/14/17 20:25 Ur Amphetamines Screen Negative (NEGATIVE) 06/14/17 20:25 U Benzodiazepines Scrn Negative (NEGATIVE) 06/14/17 20:25 U Oth Cocaine Metabols Negative (NEGATIVE) 06/14/17 20:25 U Cannabinoids Screen Positive (NEGATIVE) 06/14/17 20:25 Alcohol, Quantitative < 10 mg/dl (0-10) 06/15/17 11:28 - Hospital Course Hospital Course: ADMITTED FOR CONTINOUS VOMITING FOR 1 DAY PT HAS MULTIPLE ER VISITS FOR SAME PROBLEM . CLAIMS SHE HAD GI W/U WITH DX. GASTRITIS . I DO NOT SEE ANY ENDOSCOPY REPORT GI AND PSYCH WAS EVALUATED PT CT SCAN AND EGD SHOWED MILD GASTRITIS PT Had INTERMITTENT VOMITING PT D/C HOME ON ZOFRAN AND PEPCID F/U WITH HER GI OUT PT Discharge Exam - Head Exam Head Exam: ATRAUMATIC, NORMOCEPHALIC Discharge Plan - Follow Up Plan Condition: GOOD Disposition: HOME/ ROUTINE
--- NOTE | 2017-06-25 13:56 | CP.PCM.PN ---
Subjective - Date & Time of Evaluation Date of Evaluation: 06/25/17 Time of Evaluation: 13:56 - Subjective Subjective: PER DR. CARRASQUILLO PT TO BE D/C'D HOME TODAY W RX FOR PROTONIX AND ZOFRAN. PT SEEN BY GI AND CLEARED FOR D/C. FOR OUTPATIENT F/U WITH BOTH PRIMARY AND GI. MACHINES TECHNICIAN DISCUSSED ALL PLANS W PT AND IN AGREEMENT. NO FURTHER ORDERS. Objective - Vital Signs/Intake and Output Vital Signs (last 24 hours): Temp Pulse Resp BP Pulse Ox 98 F 75 21 103/68 99 06/25/17 08:18 06/25/17 08:18 06/25/17 08:18 06/25/17 08:18 06/25/17 08:18 Intake and Output: 06/25/17 06/25/17 06:59 18:59 Intake Total 300 Balance 300 - Medications Medications: Current Medications Ondansetron HCl (Zofran Inj) 4 mg IVP Q4 PRN PRN Reason: Nausea/Vomiting Last Admin: 06/25/17 10:15 Dose: 4 mg Pantoprazole Sodium (Protonix Inj) 40 mg IVP ACBD DAVI Last Admin: 06/25/17 06:38 Dose: 40 mg Trazodone HCl (Desyrel) 50 mg PO HS DAVI Last Admin: 06/24/17 21:46 Dose: 50 mg - Labs Labs: 06/20/17 20:22 06/20/17 20:22
[2017-06-25 16:52] VITALS: BP 117/76; PULSE 84; RESP 20; TEMP 98.7; O2SAT 100
== END 2017-06-25 18:56 | disposition home or self-care (01) | DRG 392 ==
LOC: C.ER 18:39 → C.9E 21:58 → C.3T 22:37 → OBSVTOIN 06-16 15:11
PROVIDERS: ADMIT Internal Medicine Cardiovascular Disease; ATTEND Internal Medicine Cardiovascular Disease
PROC: 0DB88ZX Excision of Small Intestine, Via Natural or Artificial Opening Endoscopic, Diagnostic (ICD-10-PCS; principal; 2017-06-23 13:20)
DX: K20.8 Other esophagitis (principal); N39.0 Urinary tract infection, site not specified; F12.288 Cannabis dependence with other cannabis-induced disorder; F39 Unspecified mood [affective] disorder; J45.909 Unspecified asthma, uncomplicated; E87.6 Hypokalemia; G43.A1 Cyclical vomiting, in migraine, intractable; G44.89 Other headache syndrome; K44.9 Diaphragmatic hernia without obstruction or gangrene; K29.50 Unspecified chronic gastritis without bleeding